=== PATIENT | female | born 2000 | race Caucasian/White ===

== ENCOUNTER 2019-08-16 22:19 | Emergency (ER) | payer OTHER, SELFPAY ==
--- NOTE | ~2019-08-16 | US_ITS ---
EXAMINATION: US OB <=14 wk fetus w TV EXAM DATE: 08/17/2019 00:50 INDICATION: Vaginal bleeding, . 1st trimester. Beta hCG 30. TECHNIQUE: Pelvic obstetrical transabdominal sonogram was performed by a technologist. There are mu ltiple grayscale and Doppler images available for interpretation. There are no earlier studies of th is gestation for comparison. FINDINGS: Uterus measures 9.0 x 5.9 x 4.0 cm, is anteverted and morphologically normal. There is no i ntrauterine or extrauterine identified. Endometrial stripe measures 6 mm, within normal wagner its. There is a nabothian cyst. There is small free pelvic fluid. Right adnexa: The ovary measures 1.7 x 1.8 x 1.7 cm and is morphologically normal. Ovarian vascular f low confirmed. Left adnexa: The ovary measures 2.5 x 1.8 x 1.5 cm and is morphologically normal. Ovarian vascular fl ow confirmed. Early intrauterine or recent spontaneous are common causes of elevated beta hCG in absence of intrauterine confirmation. Ultrasound can sometimes identify, but never exclud e an ectopic in the setting of positive beta hCG. Follow up as warranted clinically with s erial beta hCG levels or ultrasound. IMPRESSION: 1. No intrauterine or extrauterine identified. Reviewed, dictated and finalized at location A.
[2019-08-16 22:23] VITALS: BP 144/78; PULSE 97; RESP 18; TEMP 37.2; O2SAT 95
--- NOTE | 2019-08-16 22:42 | ED.GENADULT ---
HPI - General Adult General Chief complaint: Vaginal Bleeding Stated complaint: cramping, preg test Time Seen by Provider: 08/16/19 22:28 Source: RN notes reviewed History of Present Illness HPI narrative: Patient presents emergency department from home for positive test. Patient states over the past week she has been having some intermittent lower abdominal cramping intermittent vaginal bleeding described as spotting. She states currently she is not having any bleeding or abdominal pain. States she took a home test tonight that was positive. The patient has a history of 1 previous with delivery via . She denies any fevers or chills nausea vomiting diarrhea or any other symptoms. The patient is followed by Dr. Becerra Related Data Home Medications Medication Instructions Recorded Confirmed No Home Medications 08/16/19 08/16/19 Allergies Allergy/AdvReac Type Severity Reaction Status Date / Time No Known Allergies Allergy Verified 08/16/19 22:56 Review of Systems Review of Systems: Narrative: Gen.: Denies fevers or chills ENT: Denies congestion Respiratory: Denies shortness of breath or cough CV: Denies chest pain or palpitations GI: Reports abdominal pain, denies nausea, emesis or diarrhea reports vaginal bleeding Musculoskeletal: Denies back pain or muscle pain Neuro: Denies numbness, tingling, weakness or focal weakness Skin: Denies rash Except as documented, all other systems reviewed and negative [facility] Past Medical History Medical History (Updated 08/17/19 @ 01:16 by Piotr Ferguson DO) Patient denies significant medical history Social History Social History (Updated 08/16/19 @ 22:44 by Piotr Ferguson DO) Smoking status: Never smoker Exam Narrative: Exam Narrative: APPEARANCE: No acute distress, nontoxic, resting in bed EYES: EOMI HEENT: Normocephalic, atraumatic, OMM RESPIRATORY: No respiratory distress Clear to auscultation bilaterally with no rhonchi wheezing or rales. CARDIOVASCULAR: Regular rate and rhythm without murmurs rubs or gallops. ABDOMINAL: Soft, nontender, nondistended, no rebound or guarding MUSCULOSKELETAl: Moves all extremities. NEURO: Awake and alert. Following commands, speech normal, no focal deficits SKIN:: Warm, dry. No rashes lesions or abrasions PSYCHIATRIC: Normal affect/mood, Course Course Emergency Course: Discussed with Dr. Becerra presentation and work-up. Agrees with plan for discharge repeat beta-hCG in 48 hours and follow-up as an outpatient Discussed with patient results of workup and diagnosis. Discussed need for follow-up with primary care, proper use of medication, and reasons to return to the emergency department. Patient understands and agrees to current treatment plan Vital Signs Vital signs: Vital Signs Temperature 98.9 F 08/16/19 22:23 Pulse Rate 97 08/16/19 22:23 Respiratory Rate 18 08/16/19 22:23 Blood Pressure 144/78 H 08/16/19 22:23 Pulse Oximetry 95 08/16/19 22:23 Temperature 98.9 F 08/16/19 22:23 Pulse Rate 87 08/16/19 23:30 Respiratory Rate 16 08/16/19 23:30 Blood Pressure 129/75 08/16/19 23:30 Pulse Oximetry 97 08/16/19 23:30 Medical Decision Making Vital Signs Vital Signs: Vital Signs Temperature 98.9 F 08/16/19 22:23 Pulse Rate 97 08/16/19 22:23 Respiratory Rate 18 08/16/19 22:23 Blood Pressure 144/78 H 08/16/19 22:23 Pulse Oximetry 95 08/16/19 22:23 Temperature 98.9 F 08/16/19 22:23 Pulse Rate 87 08/16/19 23:30 Respiratory Rate 16 08/16/19 23:30 Blood Pressure 129/75 08/16/19 23:30 Pulse Oximetry 97 08/16/19 23:30 Lab Data Result diagrams: 08/16/19 23:01 08/16/19 23:01 Labs: Lab Results 08/16/19 08/16/19 08/16/19 Range/Units 23:01 23:01 23:03 WBC 6.7 (4.5-10.0) K/mm3 RBC 4.23 (4.2-5.4) M/mm3 Hgb 11.8 L (12.0-15.0) g/dL Hct 35.9 L (37.0-47.0) %
[2019-08-16 23:09] LABS: Basophils Percent Auto 0.5 % (0.2-1.2); Eosinophils Absolute Auto 0.1 K/mm3 (0-0.3); Eosinophils Percent Auto 1.1 % (0-4.4); Hematocrit 35.9 % (37.0-47.0); Hemoglobin 11.8 g/dL (12.0-15.0); Immature Granulocyte Absolute 0.02 K/mm3 (0.00-0.031); Immature Granulocyte Percent A 0.3 % (0-0.5); Lymphocytes Percent Auto 34.5 % (18.3-44.2); Mean Corpuscular HGB Conc 32.9 g/dl (32-36); Mean Corpuscular Hemoglobin 27.9 pg (26-34); Mean Corpuscular Volume 84.9 fl (80-100); Mean Platelet Volume 9.6 fl (7.4-10.4); Monocytes Absolute Auto 0.5 K/mm3 (0.1-0.6); Monocytes Percent Auto 7.2 % (2.6-8.5); Neutrophils Absolute Auto 3.8 K/mm3 (1.3-6.7); Neutrophils Percent Auto 56.4 % (45.5-73.1); Platelet Count Result 234 k/mm3 (150-375); Red Blood Count 4.23 M/mm3 (4.2-5.4); White Blood Count 6.7 K/mm3 (4.5-10.0)
[2019-08-16 23:17] LABS: Add Urine Microscopic? YES; Appearance Urine Clear (Clear); Bacteria Urine 2+ /hpf; Bilirubin Urine Negative (Negative); Blood Urine 2+ (Negative); Color Urine Straw (Yellow); Glucose Urine UA Negative (Negative); Ketones Urine Negative (Negative); Leukocyte Esterase Ur Negative LEU/UL (Negative); Nitrate Urine Negative (Negative); Protein Urine Negative (Negative); RBC Urine 0-2 /hpf (0-2); Specific Grav Ur 1.005 (1.001-1.035); Squamous Epithelial Cell Urine Many /hpf (Few); Urobilinogen Urine Negative mg/dL (<2.0); WBC Urine 0-3 /hpf
[2019-08-16 23:20] LABS: Alanine Aminotransferase 13 U/L (4-35); Albumin Level 4.4 g/dL (3.5-5.1); Alkaline Phosphatase 108 U/L (38-126); Aspartate Amino Transferase 23 U/L (14-36); Bilirubin,Total 0.4 mg/dL (0.2-1.3); Blood Urea Nitrogen 13 mg/dL (7-17); Carbon Dioxide 25 mmol/L (22-30); Chloride 105 mmol/L (98-107); Estimated CRCL calculation 124 ml/min; Estimated Glomerular Filt Rate > 60; Glucose 112 mg/dL (65-105); Potassium 3.5 mmol/L (3.4-5.0); Sodium 136 mmol/L (137-145)
[2019-08-16 23:30] VITALS: BP 129/75; PULSE 87; RESP 16; O2SAT 97
[2019-08-16 23:36] LABS: Beta HCG Quantitative 29.82 mIU/ML
[2019-08-17 01:41] VITALS: BP 130/78; PULSE 78; RESP 16; O2SAT 97
== END 2019-08-17 01:43 | disposition home or self-care (01) ==
PROVIDERS: Emergency Provider Emergency Medicine
DX: O20.0 Threatened abortion (principal); Z3A.01 Less than 8 weeks gestation of pregnancy
CPT/HCPCS: 36415; 76801; 76817; 80053; 81001; 81025; 84702; 85025; 85461; 99284

== ENCOUNTER 2019-09-03 09:00 | Emergency (ER) | payer OTHER, SELFPAY ==
[2019-09-03 09:05] VITALS: BP 118/74; PULSE 84; RESP 16; TEMP 36.3; O2SAT 100
--- NOTE | 2019-09-03 09:18 | ED.FEMALEGU ---
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 The pain is bilateral. worst with walking. Vaginal dyscharge is clear and minimal. She was seen here about 2 1/2 weeks ago and told that she was having an early miscarriage. She has some light vaginal bleeding and cramping. She was then diagnosed with a UTI a few days later. She recently completed treatment and had been feeling better until yesterday. Related Data Allergies Allergy/AdvReac Type Severity Reaction Status Date / Time No Known Allergies Allergy Verified 09/03/19 09:52 Review of Systems Review of Systems: All systems reviewed & are unremarkable except as noted in HPI and below PMFSH Past Medical History Medical History Patient denies significant medical history Social History Social History Smoking status: Never smoker Exam Const: General: healthy appearing, no acute distress and alert Orientation/consciousness: patient oriented x3 HENMT: Head: normal to inspection Neck: Neck: normal visual inspection and no lymphadenopathy Chest: Chest palpation & inspection: no tenderness Resp: Effort & Inspection: normal respiratory effort Auscultation: clear to auscultation bilaterally, no rales, no rhonchi and no wheezes Cardio: Jugular venous distension: no JVD Rate: regular rate Rhythm: regular rhythm Heart sounds: no murmurs GI: Inspection: non-distended GI Palp: Yes Soft to palpation and No Tenderness to palpation present (GI) : External Female Exam: normal external appearance Speculum Exam - Vagina: normal appearance of the vagina and normal vaginal discharge Speculum Exam - Cervix: normal appearance of the cervix Skin: General skin exam: normal color Neuro: General: patient oriented x3 and moves all extremities Speech: normal speech Extrem: General: no edema Psych: Appearance: well kempt Affect: normal affect Course Vital Signs Vital signs: Vital Signs Temperature 36.3 C L 09/03/19 09:05 Pulse Rate 84 09/03/19 09:05 Respiratory Rate 16 09/03/19 09:05 Blood Pressure 118/74 09/03/19 09:05 Pulse Oximetry 100 09/03/19 09:05 Temperature 36.6 C 09/03/19 11:40 Pulse Rate 75 09/03/19 11:40 Respiratory Rate 16 09/03/19 11:40 Blood Pressure 127/72 09/03/19 11:40 Pulse Oximetry 99 09/03/19 11:40 MDM - Female Genitourinary MDM Narrative Medical decision making narrative: exam was essentially normal. She did have minimal clear discharge. Exam is not tyical for a yeasty infection, but symptoms did start after course of antibiotics, so she is at risk. I will send labs for STD and give 1 time dose of diflucan. Medical Records Attestation: I reviewed the patient's medical records. Lab Data Attestation: I reviewed the patient's lab results. Labs: Lab Results 09/03/19 09/03/19 09/03/19 Range/Units 09:14 11:21 11:21 Urine Color Yellow (Yellow) Urine Appearance Clear (Clear) Urine pH 6.0 (5.0-9.0) Ur Specific [place] 1.025 (1.001-1.035) Urine Protein Negative (Negative) mg/dL Urine Glucose (UA) Negative (Negative) mg/dL Urine Ketones Negative (Negative) mg/dL Ur Blood (Man) 1+ H (Negative) Urine Nitrate Negative (Negative) Urine Bilirubin Negative (Negative) Urine Urobilinogen 1.0 (<2.0) mg/dL Leukocyte Esterase Rfl Negative (Negative) AB/UL Urine RBC 0-2 (0-2) /hpf Urine WBC 0-3 /hpf Ur Squamous Epith Cells Moderate H (Few) /hpf Urine Bacteria Trace /hpf C.trachomatis RNA (TMA) Pending N.gonorrhoeae RNA (TMA) Pending Trichomonas Direct ID Negative (Negative) Discharge Plan Discharge Clinical
[2019-09-03 09:39] LABS: Appearance Urine Clear (Clear); Bilirubin Urine Negative (Negative); Blood Urine 1+ (Negative); Color Urine Yellow (Yellow); Glucose Urine UA Negative (Negative); Ketones Urine Negative (Negative); Leukocyte Esterase Ur Negative LEU/UL (Negative); Nitrate Urine Negative (Negative); Protein Urine Negative (Negative); Specific Grav Ur 1.025 (1.001-1.035)
[2019-09-03 09:54] LABS: Add Urine Microscopic? YES; RBC Urine 0-2 /hpf (0-2); Squamous Epithelial Cell Urine Moderate /hpf (Few); WBC Urine 0-3 /hpf
[2019-09-03 09:55] LABS: Bacteria Urine Trace /hpf
[2019-09-03] MEDS: FLUCONAZOLE 150 MG TABLET PO (11:37)
[2019-09-03 11:40] VITALS: BP 127/72; PULSE 75; RESP 16; TEMP 36.6; O2SAT 99
== END 2019-09-03 11:41 | disposition home or self-care (01) ==
PROVIDERS: Emergency Provider Emergency Medicine
DX: R10.2 Pelvic and perineal pain (principal)
CPT/HCPCS: 81001; 87070; 87491; 87591; 87808; 99284; A9270

== ENCOUNTER 2020-01-15 16:49 | Emergency (ER) | payer OTHER, SELFPAY ==
--- NOTE | ~2020-01-15 | US_ITS ---
EXAMINATION: US OB <=14 wk fetus w TV DATE: 01/15/2020 17:55 INDICATION: Pelvic pain TECHNIQUE: Real-time pelvic ultrasound utilizing both a transvaginal and transabdominal probe was pe rformed. The interpreting radiologist was not present for the study. COMPARISON: None. FINDINGS: The uterus measures 8.0 x 6.3 x 4.7 cm. There is an intrauterine gestational sac with double decidua sign but with no evident yolk sac or pole yet identified likely due to early stage of pregnanc y. The mean sac diameter measures 2-3 mm, which correlates with an estimated gestational age of 4 wee ks and 6 days. Suggestion of a prior section scar along the anterior lower uterine segment. The right ovary measures 3.3 x 2.9 x 2.9 cm. There are couple anechoic cysts in the right ovary, the larger measuring 2.6 cm with thick wall likely corpus luteum cyst. Vascular flow identified in right ovary on color Doppler. The left ovary is not visualized. There is no free fluid in the pelvis. IMPRESSION: 1. Single intrauterine gestational sac with double decidua sign but no discernible yolk sac or pole likely due to early stage of . 2. Gestational age by ultrasound of 4 weeks 6 day(s) with ultrasound estimated date of delivery (TESSA ) of 09/17/2020. Reviewed, dictated and finalized at [facility]. 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 Single intrauterine gestational sac with double decidua sign but no discerni ble yolk sac or pole likely due to early stage of . 2. Gestational age by ultrasound of 4 weeks 6 day(s) with ultrasound estimated date of delivery (TESSA) of 09/17/2020.
[2020-01-15 16:54] VITALS: BP 139/80; PULSE 88; RESP 18; TEMP 36; O2SAT 96
[2020-01-15 17:31] LABS: Basophils Percent Auto 0.4 % (0.2-1.2); Eosinophils Absolute Auto 0.1 K/mm3 (0-0.3); Eosinophils Percent Auto 0.6 % (0-4.4); Hemoglobin 12.5 g/dL (12.0-15.0); Immature Granulocyte Absolute 0.02 K/mm3 (0.00-0.031); Immature Granulocyte Percent A 0.3 % (0-0.5); Lymphocytes Absolute Auto 2.05 K/mm3 (0.9-3.2); Lymphocytes Percent Auto 25.7 % (18.3-44.2); Mean Corpuscular HGB Conc 33.8 g/dl (32-36); Mean Corpuscular Hemoglobin 28.3 pg (26-34); Mean Corpuscular Volume 83.7 fl (80-100); Mean Platelet Volume 9.3 fl (7.4-10.4); Monocytes Absolute Auto 0.4 K/mm3 (0.1-0.6); Neutrophils Absolute Auto 5.4 K/mm3 (1.3-6.7); Platelet Count Result 228 k/mm3 (150-375); Red Blood Count 4.42 M/mm3 (4.2-5.4); Red Cell Distribution Width 12.7 % (11.5-14.5)
--- NOTE | 2020-01-15 17:56 | ED.GENADULT ---
HPI - General Adult General Chief complaint: Unspecified Stated complaint: pelvic pain & cramping - 5 wks preg Time Seen by Provider: 01/15/20 16:57 Source: patient Mode of arrival: ambulatory Limitations: no limitations History of Present Illness HPI narrative: This patient is a 19 year old female approximately 5 wk by LMP who presents for evaluation of lower pelvic pain for the past few hours. She states the pain has resolved now but she is concerned because she had a miscarriage in July. She denies vaginal bleeding, lightheadedness or dizziness. She reports abdominal pain when she urinates so she would like to be checked for a UTI. Related Data Home Medications Medication Instructions Recorded Confirmed No Home Medications 01/15/20 01/15/20 Allergies Allergy/AdvReac Type Severity Reaction Status Date / Time No Known Allergies Allergy Verified 01/15/20 16:53 Review of Systems Review of Systems: Narrative: CONSTITUTIONAL: Denies fever, chills, or sweats. ENT: Denies rhinorrhea, congestion, sore throat, or otalgia. RESPIRATORY: Denies cough or dyspnea. . GENITOURINARY: Denies dysuria or hematuria. SKIN: Denies rash or itching. MUSCULOSKELETAL: Denies back pain, joint pain, or myalgia. NEUROLOGIC: Denies headache, numbness, or weakness. PSYCHIATRIC: Denies anxiety or depression. All systems reviewed & are unremarkable except as noted in HPI and below PMFSH Past Medical History Medical History (Updated 01/16/20 @ 00:00 by Beata Dakaren) Patient denies significant medical history Surgical History Surgical History (Updated 01/15/20 @ 17:58 by Gabriella Oliveros MD) H/O section Social History Social History Smoking status: Never smoker Gender identity (if verbalized by the patient): Female Exam Narrative: Exam Narrative: GENERAL: Well-appearing, well-nourished, and in no acute distress. HEAD: Normocephalic, atraumatic EYES: PERRLA and EOMI, conjunctiva clear without discharge E RESPIRATORY: No respiratory distress, Airway patent, Respirations non-labored, Clear to auscultation without rales, rhonchi or wheeze HEART: Regular rate and rhythm. No murmur heard. Normal peripheral pulses. ABDOMEN: Soft, nontender, nondistended, normal active bowel sounds. No masses. No rebound or guarding, No organomegaly. EXTREMITIES: No edema, normal strength with full range of motion. SKIN: Warm, dry, normal color without rash NEURO: Alert and oriented x3. CN 2-12 grossly intact. No focal deficits. PSYCH: Normal mood and affect. : Speculum Exam - Vagina: abnormal vaginal discharge white Speculum Exam - Cervix: normal palpation and Cervical os closed Course Reevaluation(s) Reevaluation #1: Patient is aware of ultrasound only showing sac and it may be too early. She reports her HCG has double over the past 48 hours and she understands she will have to follow up with OB to determine viability. Date: 01/15/20 Time: 19:31 Vital Signs Vital signs: Vital Signs Temperature 96.8 F L 01/15/20 16:54 Pulse Rate 88 01/15/20 16:54 Respiratory Rate 18 01/15/20 16:54 Blood Pressure 139/80 01/15/20 16:54 Pulse Oximetry 96 01/15/20 16:54 Temperature 96.8 F L 01/15/20 16:54 Pulse Rate 103 H 01/15/20 19:27 Respiratory Rate 18 01/15/20 16:54 Blood Pressure 112/63 01/15/20 19:27 Pulse Oximetry 96 01/15/20 16:54 Medical Decision Making Vital Signs Vital Signs: Vital Signs Temperature 96.8 F L 01/15/20 16:54 Pulse Rate 88 01/15/20 16:54 Respiratory Rate 18 01/15/20 16:54 Blood Pressure 139/80 01/15/20 16:54 Pulse Oximetry 96 01/15/20 16:54 Temperature 96.8 F L 01/15/20 16:54 Pulse Rate 103 H 01/15/20 19:27 Respiratory Rate 18 01/15/20 16:54 Blood Pressure 112/63 01/15/20 19:27 Pulse Oximetry 96 01/15/20 16:54 Lab Data Result diagrams: 01/15/20 17:21
[2020-01-15 18:09] LABS: Add Urine Microscopic? YES; Appearance Urine Clear (Clear); Bacteria Urine Trace /hpf; Bilirubin Urine Negative (Negative); Blood Urine Negative (Negative); Color Urine Yellow (Yellow); Glucose Urine UA Negative (Negative); Ketones Urine Negative (Negative); Leukocyte Esterase Ur Negative LEU/UL (Negative); Mucus Urine Rare /lpf; Nitrate Urine Negative (Negative); Protein Urine Negative (Negative); Specific Grav Ur 1.026 (1.001-1.035); Squamous Epithelial Cell Urine Many /hpf (Few); WBC Urine 0-3 /hpf
[2020-01-15 19:25] VITALS: BP 130/71; PULSE 74
[2020-01-15 19:26] VITALS: BP 112/67; PULSE 93
[2020-01-15 19:27] VITALS: BP 112/63; PULSE 103
== END 2020-01-15 19:54 | disposition home or self-care (01) ==
PROVIDERS: Emergency Provider General Practice
DX: O26.891 Other specified pregnancy related conditions, first trimester (principal); R10.2 Pelvic and perineal pain; Z3A.01 Less than 8 weeks gestation of pregnancy
CPT/HCPCS: 36415; 76801; 76817; 81001; 81025; 84702; 85025; 87070; 87491; 87591; 87808; 99284

== ENCOUNTER 2020-03-20 21:08 | Emergency (ER) | payer OTHER, SELFPAY ==
[2020-03-20 21:11] VITALS: BP 124/71; PULSE 100; RESP 18; TEMP 36.4; O2SAT 100
--- NOTE | 2020-03-20 21:53 | ED.FEMALEGU ---
HPI - Female Genitourinary General Chief complaint: Urogenital-Female Stated complaint: 14 wks , ongoing uti symptoms Time Seen by Provider: 03/20/20 21:13 Source: patient Mode of arrival: ambulatory Limitations: no limitations History of Present Illness HPI Narrative: A 19-year-old female comes into the emergency department with complaints of dysuria burning and stinging. She states that it feels like there is an ice pick in her urethra. Patient notes she is currently 14 weeks has been treated for an ongoing UTI. She notes that she has seen her primary care doctor who initially prescribed her Macrobid and then cephalexin. She states that she is still currently taking cephalexin for her second go around. Patient denies any vaginal discharge at this time. Related Data Home Medications Medication Instructions Recorded Confirmed cephalexin 03/20/20 [id number] tablet PO 03/20/20 [] Allergies Allergy/AdvReac Type Severity Reaction Status Date / Time No Known Allergies Allergy Verified 03/20/20 21:18 Review of Systems Review of Systems: Narrative: CONSTITUTIONAL: Denies fever, chills, or sweats. EYES: Denies visual changes, redness, or discharge. ENT: Denies rhinorrhea, congestion, sore throat, or otalgia. CARDIOVASCULAR: Denies chest pain, palpitations, or edema. RESPIRATORY: Denies cough or dyspnea. GASTROINTESTINAL: Denies abdominal pain, nausea, vomiting, or diarrhea. GENITOURINARY: Endorses dysuria. SKIN: Denies rash or itching. MUSCULOSKELETAL: Denies back pain, joint pain, or myalgia. NEUROLOGIC: Denies headache, numbness, dizziness, or weakness. PSYCHIATRIC: Denies anxiety or depression. PMFSH Past Medical History Medical History Patient denies significant medical history Surgical History Surgical History H/O section Social History Social History Smoking status: Never smoker Gender identity (if verbalized by the patient): Female Exam Narrative: Exam Narrative: GENERAL: Well-appearing, well-nourished, and in no acute distress. HEAD: Normocephalic, atraumatic. EYES: PERRLA and EOMI. ENT: Nares clear, no rhinorrhea or epistaxis. Mucous membranes moist. Oropharynx without tonsillar hypertrophy exudate or other lesions. Bilateral TMs pearly hernandez nonbulging NECK: Supple. No adenopathy or masses. No carotid bruits or JVD CHEST: Clear to auscultation. No respiratory distress. No wheezes rales or rhonchi HEART: Regular rate and rhythm. No murmur heard. Normal peripheral pulses. ABDOMEN: Soft, nontender, nondistended, normal active bowel sounds. EXTREMITIES: Normal range of motion. No edema. SKIN: Warm, dry, no rash. NEURO: No focal deficits. Alert and oriented x3. PSYCH: Normal mood and affect. Course Vital Signs Vital signs: Vital Signs Temperature 36.4 C 03/20/20 21:11 Pulse Rate 100 03/20/20 21:11 Respiratory Rate 18 03/20/20 21:11 Blood Pressure 124/71 03/20/20 21:11 Pulse Oximetry 100 03/20/20 21:11 Temperature 36.4 C 03/20/20 21:11 Pulse Rate 100 03/20/20 21:11 Respiratory Rate 18 03/20/20 21:11 Blood Pressure 124/71 03/20/20 21:11 Pulse Oximetry 100 03/20/20 21:11 MDM - Female Genitourinary MDM Narrative Medical decision making narrative: In brief this 19-year-old female came into the emergency department complaints of dysuria and an ongoing UTI. Patient was able to give a urine sample. There was no evidence of WBCs bacteria leukocyte esterase or nitrites on her urine. Informed the patient that at this time I do not see anything to treat, recommended she continue her treatment as laid out by her primary care physician and follow-up with either her vocational rehabilitation counselor or a urologist which we can provide. Medical Records Attestation: I revie
[2020-03-20 22:23] LABS: Add Urine Microscopic? YES; Appearance Urine Clear (Clear); Bacteria Urine Trace /hpf; Bilirubin Urine Negative (Negative); Blood Urine Negative (Negative); Color Urine Straw (Yellow); Glucose Urine UA Negative (Negative); Ketones Urine Negative (Negative); Leukocyte Esterase Ur Negative LEU/UL (Negative); Mucus Urine Rare /lpf; Nitrate Urine Negative (Negative); Protein Urine Negative (Negative); RBC Urine 0-2 /hpf (0-2); Squamous Epithelial Cell Urine Moderate /hpf (Few); WBC Urine 0-3 /hpf
[2020-03-20 23:26] VITALS: BP 133/87; PULSE 93; RESP 18; O2SAT 99
== END 2020-03-20 23:28 | disposition home or self-care (01) ==
PROVIDERS: Emergency Provider Emergency Medicine
DX: O23.12 Infections of bladder in pregnancy, second trimester (principal); Z3A.14 14 weeks gestation of pregnancy
CPT/HCPCS: 81001; 99283

== ENCOUNTER 2020-06-22 16:38 | Observation (INO) | payer OTHER, SELFPAY ==
[2020-06-22 17:00] VITALS: BMI 36.1
[2020-06-22 17:01] VITALS: BP 126/80; PULSE 100
--- NOTE | 2020-06-22 17:12 | OBADM ---
This patient, Chloé Barrios, admitted to the OB room OB Post 115 for observation. Patient/family oriented to hospital policies and general routines including ID bracelet, bed and alarms, visiting hours, pain management, procedures, bathroom and other care routines, personal items, smoking policy, room service/diet, and visiting hours. Patient/Family are encouraged to report perceived risks to care and to ask questions if they do not understand what they are told or what they should do.
[2020-06-22 17:16] VITALS: BP 112/63; PULSE 90
[2020-06-22 17:31] VITALS: BP 113/66; PULSE 96
[2020-06-22 17:37] VITALS: TEMP 36.6
[2020-06-22 17:46] VITALS: BP 107/72; PULSE 96
[2020-06-22 17:50] LABS: Add Urine Microscopic? YES; Appearance Urine Cloudy (Clear); Bacteria Urine Trace /hpf; Bilirubin Urine Negative (Negative); Blood Urine Negative (Negative); Color Urine Yellow (Yellow); Glucose Urine UA Negative (Negative); Ketones Urine Negative (Negative); Leukocyte Esterase Ur Negative LEU/UL (Negative); Nitrate Urine Negative (Negative); Protein Urine Negative (Negative); RBC Urine 0-2 /hpf (0-2); Specific Grav Ur 1.008 (1.001-1.035); Squamous Epithelial Cell Urine Few /hpf (Few); Urobilinogen Urine Negative mg/dL (<2.0); WBC Urine 0-3 /hpf
[2020-06-22 18:01] VITALS: BP 112/71; PULSE 95
--- NOTE | 2020-06-26 13:51 | P.PNOB_ITS ---
OB - Triage/Final Diagnosis Visit Information Comments/Additional reasons for admission: I have assessed the risk for this patient, Chloé Barrios, and determined that she would benefit from observation care. Evaluation Laboratory results: Laboratory Tests 06/22/20 17:37 Urine Color Yellow Urine Appearance Cloudy H Urine pH 7.0 Ur Specific [place] 1.008 Urine Protein Negative Urine Glucose (UA) Negative Urine Ketones Negative Ur Blood (Man) Negative Urine Nitrate Negative Urine Bilirubin Negative Urine Urobilinogen Negative Leukocyte Esterase Rfl Negative Urine RBC 0-2 Urine WBC 0-3 Ur Squamous Epith Cells Few Urine Bacteria Trace Final Diagnosis (1) Lumbago: Code(s): M54.5 - Low back pain Status: Acute
== END 2020-06-22 18:18 | disposition home or self-care (01) ==
PROVIDERS: Admitting Provider Obstetrics & Gynecology; Visit Provider Obstetrics & Gynecology
DX: O99.892 Other specified diseases and conditions complicating childbirth (principal); M54.5 Low back pain; Z3A.27 27 weeks gestation of pregnancy
CPT/HCPCS: 81001; G0378; G0379

== ENCOUNTER 2020-07-06 10:47 | Outpatient (CLI) | payer OTHER, SELFPAY ==
[2020-07-06 11:31] VITALS: BP 134/77; PULSE 102
[2020-07-06 11:41] LABS: Basophils Percent Auto 0.1 % (0.2-1.2); Eosinophils Percent Auto 0.4 % (0-4.4); Hematocrit 30.5 % (37.0-47.0); Hemoglobin 10.3 g/dL (12.0-15.0); Immature Granulocyte Absolute 0.03 K/mm3 (0.00-0.031); Immature Granulocyte Percent A 0.4 % (0-0.5); Lymphocytes Absolute Auto 1.22 K/mm3 (0.9-3.2); Mean Corpuscular HGB Conc 33.8 g/dl (32-36); Mean Corpuscular Hemoglobin 29.2 pg (26-34); Mean Corpuscular Volume 86.4 fl (80-100); Mean Platelet Volume 9.1 fl (7.4-10.4); Monocytes Absolute Auto 0.5 K/mm3 (0.1-0.6); Neutrophils Absolute Auto 5.4 K/mm3 (1.3-6.7); Neutrophils Percent Auto 75.1 % (45.5-73.1); Platelet Count Result 173 k/mm3 (150-375); Red Blood Count 3.53 M/mm3 (4.2-5.4); Red Cell Distribution Width 14.3 % (11.5-14.5); White Blood Count 7.2 K/mm3 (4.5-10.0)
[2020-07-06 11:46] VITALS: BP 131/77; PULSE 98
[2020-07-06 11:48] LABS: Add Urine Microscopic? YES; Appearance Urine Cloudy (Clear); Bacteria Urine Trace /hpf; Bilirubin Urine Negative (Negative); Blood Urine Negative (Negative); Color Urine Yellow (Yellow); Glucose Urine UA Negative (Negative); Ketones Urine Negative (Negative); Leukocyte Esterase Ur Negative LEU/UL (NEGATIVE); Mucus Urine Rare /lpf; Nitrate Urine Negative (Negative); Protein Urine Negative (Negative); Specific Grav Ur 1.013 (1.001-1.035); Squamous Epithelial Cell Urine Occasional /hpf (Few); Urobilinogen Urine Negative mg/dL (<2.0); WBC Urine 0-3 /hpf (0-3)
[2020-07-06 11:50] LABS: Alanine Aminotransferase 10 U/L (4-35); Albumin Level 3.4 g/dL (3.5-5.1); Alkaline Phosphatase 91 U/L (38-126); Anion Gap 5 mmol/L (8-16); Aspartate Amino Transferase 19 U/L (14-36); Bilirubin,Total 0.2 mg/dL (0.2-1.3); Blood Urea Nitrogen 8 mg/dL (7-17); Calcium 9.2 mg/dL (8.4-10.2); Carbon Dioxide 23 mmol/L (22-30); Chloride 107 mmol/L (98-107); Estimated Glomerular Filt Rate > 60; Glucose 110 mg/dL (65-105); Potassium 3.6 mmol/L (3.4-5.0); Sodium 135 mmol/L (137-145); Uric Acid 2.7 mg/dL (2.5-7.5)
[2020-07-06 11:55] LABS: Creatinine Urine 59.7 mg/dL; Total Protein Urine Random 15 mg/dL; Ur Ttl Prot Creatinine Ratio 0.25 mg/mg (0-0.20)
[2020-07-06 12:01] VITALS: BP 132/80; PULSE 103
[2020-07-06 12:16] VITALS: BP 124/74; PULSE 97
[2020-07-06 12:31] VITALS: BP 122/80; PULSE 107
--- NOTE | 2020-07-06 12:37 | PC.NURSE ---
Called Dr. Becerra with lab results and BPs. Reactive NST and no contractions seen or felt. Pt states that she has a headache that she rates a 4 and states that it isn't too bad. May D/C home.
== END 2020-07-06 12:40 | disposition home or self-care (01) ==
LOC: ANHOBOP 10:52 → ANHOBPP 10:52
PROVIDERS: Visit Provider Obstetrics & Gynecology
DX: O13.3 Gestational [pregnancy-induced] hypertension without significant proteinuria, third trimester (principal); Z3A.30 30 weeks gestation of pregnancy
CPT/HCPCS: 36415; 59025; 80053; 81001; 82570; 84156; 84550; 85025; 87086; 87088; 99199

== ENCOUNTER 2020-08-05 20:45 | Observation (INO) | payer OTHER, SELFPAY ==
[2020-08-05 21:08] VITALS: BP 138/91; PULSE 113
[2020-08-05 21:17] VITALS: BP 140/83; PULSE 110
[2020-08-05 21:20] VITALS: BMI 38.1
[2020-08-05 21:24] LABS: Basophils Percent Auto 0.2 % (0.2-1.2); Eosinophils Percent Auto 0.4 % (0-4.4); Hematocrit 30.2 % (37.0-47.0); Immature Granulocyte Absolute 0.04 K/mm3 (0.00-0.031); Immature Granulocyte Percent A 0.5 % (0-0.5); Lymphocytes Absolute Auto 1.77 K/mm3 (0.9-3.2); Lymphocytes Percent Auto 20.9 % (18.3-44.2); Mean Corpuscular HGB Conc 33.1 g/dl (32-36); Mean Corpuscular Hemoglobin 28.6 pg (26-34); Mean Corpuscular Volume 86.3 fl (80-100); Mean Platelet Volume 9.4 fl (7.4-10.4); Monocytes Absolute Auto 0.7 K/mm3 (0.1-0.6); Monocytes Percent Auto 8.5 % (2.6-8.5); Neutrophils Absolute Auto 5.9 K/mm3 (1.3-6.7); Neutrophils Percent Auto 69.5 % (45.5-73.1); Platelet Count Result 181 k/mm3 (150-375); Red Cell Distribution Width 14.4 % (11.5-14.5); White Blood Count 8.5 K/mm3 (4.5-10.0)
[2020-08-05 21:29] LABS: Add Urine Microscopic? YES; Appearance Urine Cloudy (Clear); Bacteria Urine 2+ /hpf; Bilirubin Urine Negative (Negative); Blood Urine Negative (Negative); Color Urine Yellow (Yellow); Glucose Urine UA Negative (Negative); Ketones Urine Negative (Negative); Leukocyte Esterase Ur Trace LEU/UL (NEGATIVE); Mucus Urine Rare /lpf; Nitrate Urine Negative (Negative); Protein Urine 1+ mg/dL (Negative); RBC Urine 0-2 /hpf (0-2); Specific Grav Ur 1.014 (1.001-1.035); Squamous Epithelial Cell Urine Many /hpf (Few); WBC Urine 0-3 /hpf (0-3)
[2020-08-05 21:31] VITALS: BP 125/76; PULSE 108
[2020-08-05 21:35] LABS: Alanine Aminotransferase 12 U/L (4-35); Albumin Level 3.4 g/dL (3.5-5.1); Alkaline Phosphatase 108 U/L (38-126); Anion Gap 8 mmol/L (8-16); Aspartate Amino Transferase 20 U/L (14-36); Bilirubin,Total 0.2 mg/dL (0.2-1.3); Blood Urea Nitrogen 6 mg/dL (7-17); Calcium 8.6 mg/dL (8.4-10.2); Carbon Dioxide 21 mmol/L (22-30); Chloride 107 mmol/L (98-107); Estimated CRCL calculation 190 ml/min; Estimated Glomerular Filt Rate > 60; Glucose 110 mg/dL (65-105); Potassium 3.6 mmol/L (3.4-5.0); Sodium 136 mmol/L (137-145); Uric Acid 2.6 mg/dL (2.5-7.5)
[2020-08-05 21:46] VITALS: BP 127/78; PULSE 107
[2020-08-05 21:48] LABS: Creatinine Urine 99.9 mg/dL; Total Protein Urine Random 25 mg/dL; Ur Ttl Prot Creatinine Ratio 0.25 mg/mg (0-0.20)
[2020-08-05 22:01] VITALS: BP 123/82; PULSE 105
[2020-08-05 22:16] VITALS: BP 116/76; PULSE 98
--- NOTE | 2020-08-07 07:18 | PM.OBTRLD ---
OB - Triage/Final Diagnosis Visit Information Comments/Additional reasons for admission: I have assessed the risk for this patient, Chloé Barrios, and determined that she would benefit from observation care. Evaluation Laboratory results: Laboratory Tests 08/05/20 08/05/20 08/05/20 21:11 21:11 21:11 WBC 8.5 RBC 3.50 L Hgb 10.0 L Hct 30.2 L MCV 86.3 MCH 28.6 MCHC 33.1 RDW 14.4 Plt Count 181 MPV 9.4 Immature Gran % (Auto) 0.5 Neut % (Auto) 69.5 Lymph % (Auto) 20.9 Nicholas % (Auto) 8.5 Eos % (Auto) 0.4 Baso % (Auto) 0.2 Lymph # (Auto) 1.77 Nicholas # (Auto) 0.7 H Eos # (Auto) 0.0 Baso # (Auto) 0.0 Abs Immat Gran (auto) 0.04 H Absolute Neuts (auto) 5.9 Absolute Nucleated RBC 0.0 Nucleated RBC % 0.0 Sodium Potassium Chloride Carbon Dioxide Anion Gap BUN Creatinine Estim Creat Clear Calc Estimated GFR Glucose Uric Acid Calcium Total Bilirubin AST ALT Alkaline Phosphatase Total Protein Albumin Urine Color Yellow Urine Appearance Cloudy H Urine pH 6.0 Ur Specific [place] 1.014 Urine Protein 1+ H Urine Glucose (UA) Negative Urine Ketones Negative Ur Blood (Man) Negative Urine Nitrate Negative Urine Bilirubin Negative Urine Urobilinogen 2.0 H Ur Leukocyte Esterase Trace H Urine RBC 0-2 Urine WBC 0-3 Ur Squamous Epith Cells Many H Urine Bacteria 2+ H Urine Mucus Rare U Random Total Protein 25 Urine Creatinine 99.9 Protein/Creat Ratio 2 0.25 H 08/05/20 21:11 WBC RBC Hgb Hct MCV MCH MCHC RDW Plt Count MPV Immature Gran % (Auto) Neut % (Auto) Lymph % (Auto) Nicholas % (Auto) Eos % (Auto) Baso % (Auto) Lymph # (Auto) Nicholas # (Auto) Eos # (Auto) Baso # (Auto) Abs Immat Gran (auto) Absolute Neuts (auto) Absolute Nucleated RBC Nucleated RBC % Sodium 136 L Potassium 3.6 Chloride 107 Carbon Dioxide 21 L Anion Gap 8 BUN 6 L Creatinine 0.50 L Estim Creat Clear Calc 190 Estimated GFR > 60 Glucose 110 H Uric Acid 2.6 Calcium 8.6 Total Bilirubin 0.2 AST 20 ALT 12 Alkaline Phosphatase 108 Total Protein 7.0 Albumin 3.4 L Urine Color Urine Appearance Urine pH Ur Specific [place] Urine Protein Urine Glucose (UA) Urine Ketones Ur Blood (Man) Urine Nitrate Urine Bilirubin Urine Urobilinogen Ur Leukocyte Esterase Urine RBC Urine WBC Ur Squamous Epith Cells Urine Bacteria Urine Mucus U Random Total Protein Urine Creatinine Protein/Creat Ratio 2 Final Diagnosis (1) Elevated blood pressure affecting , antepartum: Code(s): O16.9 - Unspecified maternal hypertension, unspecified trimester Status: Acute
== END 2020-08-05 22:50 | disposition home or self-care (01) ==
PROVIDERS: Admitting Provider Obstetrics & Gynecology; Visit Provider Obstetrics & Gynecology
DX: O13.3 Gestational [pregnancy-induced] hypertension without significant proteinuria, third trimester (principal); Z3A.33 33 weeks gestation of pregnancy
CPT/HCPCS: 36415; 59025; 80053; 81001; 82570; 84156; 84550; 85025; 87086; 87088; G0378; G0379

== ENCOUNTER 2020-09-08 05:09 | Inpatient (IN) | payer OTHER, SELFPAY ==
[2020-09-08] VITALS (60 sets, daily range): BP systolic 97–159; BP diastolic 33–140; PULSE 65–113; RESP 14–18; TEMP 36.3–37.1; O2SAT 92–100; BMI 38.9
[2020-09-08 05:49] LABS: Basophils Percent Auto 0.3 % (0.2-1.2); Eosinophils Percent Auto 0.5 % (0-4.4); Hematocrit 29.2 % (37.0-47.0); Hemoglobin 9.5 g/dL (12.0-15.0); Immature Granulocyte Absolute 0.04 K/mm3 (0.00-0.031); Immature Granulocyte Percent A 0.5 % (0-0.5); Lymphocytes Absolute Auto 1.54 K/mm3 (0.9-3.2); Lymphocytes Percent Auto 20.1 % (18.3-44.2); Mean Corpuscular HGB Conc 32.5 g/dl (32-36); Mean Corpuscular Hemoglobin 26.5 pg (26-34); Mean Corpuscular Volume 81.3 fl (80-100); Mean Platelet Volume 9.3 fl (7.4-10.4); Monocytes Absolute Auto 0.6 K/mm3 (0.1-0.6); Monocytes Percent Auto 8.2 % (2.6-8.5); Neutrophils Absolute Auto 5.4 K/mm3 (1.3-6.7); Neutrophils Percent Auto 70.4 % (45.5-73.1); Platelet Count Result 164 k/mm3 (150-375); Red Blood Count 3.59 M/mm3 (4.2-5.4); Red Cell Distribution Width 14.9 % (11.5-14.5); White Blood Count 7.7 K/mm3 (4.5-10.0)
[2020-09-08] MEDS: LACTATED RINGERS 1,000 ML 125 ML IV CONT (05:53)
--- NOTE | 2020-09-08 06:38 | WPDANESEPPF ---
Anes - Initial Pre Proc Eval Procedure: Operation Date: 09/08/20 07:30 Proposed Procedures p Repeat Section - Mykel Bceerra MD Date/Time: 09/08/20 06:38 Surgeon: Mykel Becerra MD Pre Op Diagnosis: Repeat Patient Data Age: 19 Gender: F Height: Weight: Last Vital Signs Pulse 113 H 09/08/20 06:00 BP 128/70 09/08/20 06:00 Allergies Allergy/AdvReac Type Severity Reaction Status Date / Time No Known Allergies Allergy Verified 03/20/20 21:18 Home Medications Medication Instructions Recorded Confirmed Type PNV cmb#95-ferrous fumarate-FA 1 tablet PO DAILY 08/19/20 08/19/20 History [] cephalexin 50 mg PO DAILY 08/19/20 08/19/20 History Laboratory Tests 09/08/20 09/08/20 05:37 05:37 WBC 7.7 K/mm3 K/mm3 (4.5-10.0) RBC 3.59 M/mm3 L M/mm3 (4.2-5.4) Hgb 9.5 g/dL L g/dL (12.0-15.0) Hct 29.2 % L % (37.0-47.0) MCV 81.3 fl fl (80-100) MCH 26.5 pg pg (26-34) MCHC 32.5 g/dl g/dl (32-36) RDW 14.9 % H % (11.5-14.5) Plt Count 164 k/mm3 k/mm3 (150-375) MPV 9.3 fl fl (7.4-10.4) Immature Gran % (Auto) 0.5 % % (0-0.5) Neut % (Auto) 70.4 % % (45.5-73.1) Lymph % (Auto) 20.1 % % (18.3-44.2) [place] % (Auto) 8.2 % % (2.6-8.5) Eos % (Auto) 0.5 % % (0-4.4) Baso % (Auto) 0.3 % % (0.2-1.2) Lymph # (Auto) 1.54 K/mm3 K/mm3 (0.9-3.2) [place] # (Auto) 0.6 K/mm3 K/mm3 (0.1-0.6) Eos # (Auto) 0.0 K/mm3 K/mm3 (0-0.3) Baso # (Auto) 0.0 K/mm3 K/mm3 (0.0-0.1) Abs Immat Gran (auto) 0.04 K/mm3 H K/mm3 (0.00-0.031) Absolute Neuts (auto) 5.4 K/mm3 K/mm3 (1.3-6.7) Absolute Nucleated RBC 0.0 K/mm3 K/mm3 (0.0-0.012) Nucleated RBC % 0.0 % % (0.0-0.2) RPR Pending Patient hx anesthesia problems: none Family hx anesthesia problems: none [facility] Past Medical History Medical History Patient denies significant medical history Surgical History Surgical History H/O section Family History Family History (Updated 08/19/20 @ 14:36 by Sadaf Roper RN) Grandparent Heart disease Social History Social History Smoking status: Never smoker Substance use: never Gender identity (if verbalized by the patient): Female Spiritual care concerns: No Anes - Eval Final PreProcedure Day of Procedure 09/08/20 06:38 Patient weight: obese Heart: regular rate and rhythm Lungs: clear to auscultation and normal air movement Airway: Mallampati scale class II Neurological: alert and oriented Last oral intake: >/= 8 hours ASA classification: II Emergent: no Anesthetic plan: proceed Anesthesia type and monitoring: regional spinal and standard monitoring Informed Consent: The patient's anesthetic plan and its attendant risks and benefits were discussed with the patient/family/POA. Questions were solicited and answers provided to the satisfaction of the patient/family/POA.
--- NOTE | 2020-09-08 07:15 | PM.IMHP ---
H&P: HPI History of Present Illness Date/Time: 09/08/20 07:15 Old 2 para 1001 prior section due to arrest of dilation presents for repeat delivery. She is 39 weeks by ultrasound and last menstrual period. care has been essentially uncomplicated and records are on the chart. Chief Complaint: Review of Systems Review of Systems: All systems reviewed & are unremarkable except as noted in HPI and below PMFSH Past Medical History Medical History Patient denies significant medical history Surgical History Surgical History H/O section Family History Family History Grandparent Heart disease Social History Social History Smoking status: Never smoker Substance use: never Gender identity (if verbalized by the patient): Female Spiritual care concerns: No Meds Home Medications and Allergies Home Medications Medication Instructions Recorded Confirmed Type PNV cmb#95-ferrous fumarate-FA 1 tablet PO DAILY 08/19/20 08/19/20 History [] cephalexin 50 mg PO DAILY 08/19/20 08/19/20 History Allergies Allergy/AdvReac Type Severity Reaction Status Date / Time No Known Allergies Allergy Verified 03/20/20 21:18 Vital Signs Vital Signs - 24 hr 09/08/20 05:46 09/08/20 06:00 Pulse Rate 112 H 113 H Blood Pressure 134/85 128/70 Exam Const: General: cooperative and healthy appearing Resp: Effort & Inspection: normal respiratory effort Auscultation: clear to auscultation bilaterally Cardio: Rate: regular rate Rhythm: regular rhythm GI: Inspection: normal to inspection : Bimanual exam- vagina & uterus: enlarged ( Fundal height 39cm heart tones 120) H&P: Results Labs Labs: Short CBC 09/08/20 Range/Units 05:37 WBC 7.7 (4.5-10.0) K/mm3 Hgb 9.5 L (12.0-15.0) g/dL Hct 29.2 L (37.0-47.0) % Plt Count 164 (150-375) k/mm3 Assessment and Plan Assessment and plan (1) 39 weeks gestation of : Code(s): Z3A.39 - 39 weeks gestation of Status: Acute (2) Previous section: Code(s): Z98.891 - History of uterine scar from previous surgery Status: Acute Additional Plan proceed with repeat low transverse section
[2020-09-08] MEDS: KETOROLAC 30 MG/ML VIAL (*BKC) IV PUSH ×2 (08:03→16:32)
--- NOTE | 2020-09-08 08:21 | PM.OBPRVD ---
OB - Delivery Note Procedure Procedure: Procedures Operation Date: 09/08/20 07:30 <No data on this case meets the specified criteria> events: Previous Route of delivery: Specimen: No Quantitative Blood Loss (ml): 650 Anesthesia type: Spinal Disposition: floor Narrative: Patient prepped and draped in usual manner for this procedure. Pfannenstiel incision was made carried down to the fascia which was extended bilaterally the length of the skin incision. Peritoneum was then readily entered without difficulty and the bladder flap was developed. Uterus scored with clear fluid noted vertex was delivered and the rest of baby delivered without difficulty and the cord was clamped. Manual removal of the placenta and exterior a holley of the uterus was then undertaken. Cavity was without clots or membranes and then closed using a 0 Monocryl running interlocking manner with good approximation hemostasis noted. Uterus was turned the abdomen gutters cleared of serosanguineous fluid and clots. Fascia was approximated 0 Vicryl left angle midline right of the midline with good approximation hemostasis noted. Subcutaneous tissues approximated 0 plain suture and kuldip used to approximate the skin edges patient are procedure well sent Amair[place] stable condition. Baby Weeks of gestation at delivery: 39 gender: Female Weight (pounds): 8 Weight (ounces): 2 score one minute: 9 score five minutes: 9
--- NOTE | 2020-09-08 08:37 | LDADM ---
This patient, Chloé Barrios, was admitted to Labor/Delivery/Recovery 119 on 09/08/20 at 05:09. Plans for scheduled section, pain management and were discussed with patient. Patient/family oriented to hospital policies and general routines including ID bracelet, bed and alarms, visiting hours, pain management, procedures, bathroom and other care routines, personal items, smoking policy, room service/diet and guest tray routines, infant security routines, and visiting hours. Patient/Family are encouraged to report perceived risks to care and to ask questions if they do not understand what they are told or what they should do. See OBIX for further documentation.
[2020-09-08] MEDS: OXYTOCIN 30 UNITS/NS 500 ML 30 UNITS/500 ML BAG 125 UNITS IV CONT (08:43)
[2020-09-08] MEDS: ONDANSETRON INJ 4 MG/2 ML VIAL (09:55)
[2020-09-08] MEDS: MORPHINE SULFATE (*CRX) 2 MG/ML INJ IV PUSH (09:55)
--- NOTE | 2020-09-08 10:45 | OBPPTRN ---
Patient transferred to post room # 287 via stretcher. Support person present. Oriented to unit, room, information board, rooming in, admission packet and security measures. Patient verbalizes understanding. PT introductions made and plan of care discussed per post op c section, pain management, breast feeding daily care activities. PT received instructions and education per one to one discussion, mom baby care guide and demonstration through the shift. pt and spouse both recipients of such instructions and no barriers to learning identified.
[2020-09-08 11:24] LABS: Rapid Plasma Reagin Non-Reactive (NonReactive)
--- NOTE | 2020-09-08 11:50 | PC.NURSE ---
Mother called out for assist with feeding. Mother reports infant eagerly fed for first feeding. is able to freely thrust tongue past gum ridge and flange both lips. Skin is intact on both nipples, no redness and bruising noted. Reviewed infant feeding cues, frequencies, duration of feedings, feeding elimination flow sheet, and signs of adequate intake. Demonstrated stimulation techniques to wake for feeding. Assisted with to breast. Reviewed positioning/alignment in cross cradle, holding breast in ?U? hold and guided asymmetrical latch on. Discussed rational for each. Infant able to latch correctly. nursed eagerly, with steady draws and frequent swallowing noted. Suggested mother stimulate while feeding to increase stimulate, increase intake and to assist with maintaining deep latch. Reviewed signs of a correct latch, effective nursing and suck swallow ratio. Infant would slip to shallow latch, mother reports tenderness. Demonstrated how to adjust latch more deeply while feeding. Mother reports she can feel change in latch and has no tenderness. Nipple care reviewed of lanolin after feedings, warm compresses as needed. Instructed mother to call out for RN assistance if she is unable to latch infant for feeding or she has discomfort with nursing.
[2020-09-08] MEDS: ACETAMINOPHEN 325 MG TABLET 650 MG PO (16:33)
[2020-09-08] MEDS: DOCUSATE SODIUM 100 MG CAPSULE PO (16:34)
[2020-09-08] MEDS: POLYSACCHARIDE IRON COMPLEX 150 MG CAPSULE PO (16:34)
[2020-09-08] MEDS: SIMETHICONE 80 MG TAB.CHEW PO (16:34)
--- NOTE | 2020-09-08 18:36 | PHAR ---
The patient's home med of Macrodantin 50mg has been verified.
[2020-09-08] MEDS: diphenhydrAMINE HCl INJ 50 MG/ML VIAL 25 MG IV PUSH (20:30)
[2020-09-08] MEDS: IBUPROFEN 600 MG TABLET PO (22:47)
[2020-09-09] VITALS: BP 126/81; PULSE 88; RESP 16; TEMP 36.8; O2SAT 98
[2020-09-09] MEDS: ACETAMINOPHEN 325 MG TABLET 650 MG PO ×2 (03:34→14:49)
[2020-09-09] MEDS: SIMETHICONE 80 MG TAB.CHEW PO ×6 (03:35→22:51)
[2020-09-09 03:47] VITALS: BP 112/70; PULSE 94; RESP 16; TEMP 36.8; O2SAT 97
[2020-09-09 05:09] LABS: Basophils Percent Auto 0.3 % (0.2-1.2); Eosinophils Percent Auto 0.5 % (0-4.4); Hematocrit 24.9 % (37.0-47.0); Hemoglobin 7.8 g/dL (12.0-15.0); Immature Granulocyte Absolute 0.03 K/mm3 (0.00-0.031); Immature Granulocyte Percent A 0.4 % (0-0.5); Lymphocytes Absolute Auto 1.35 K/mm3 (0.9-3.2); Lymphocytes Percent Auto 18.3 % (18.3-44.2); Mean Corpuscular HGB Conc 31.3 g/dl (32-36); Mean Corpuscular Hemoglobin 26.5 pg (26-34); Mean Corpuscular Volume 84.7 fl (80-100); Monocytes Absolute Auto 0.6 K/mm3 (0.1-0.6); Monocytes Percent Auto 8.1 % (2.6-8.5); Neutrophils Absolute Auto 5.3 K/mm3 (1.3-6.7); Neutrophils Percent Auto 72.4 % (45.5-73.1); Platelet Count Result 147 k/mm3 (150-375); Red Blood Count 2.94 M/mm3 (4.2-5.4); Red Cell Distribution Width 15.3 % (11.5-14.5); White Blood Count 7.4 K/mm3 (4.5-10.0)
[2020-09-09] MEDS: IBUPROFEN 600 MG TABLET PO ×3 (05:28→18:38)
[2020-09-09 08:40] VITALS: BP 120/80; PULSE 99; RESP 16; TEMP 36.8; O2SAT 97
[2020-09-09 09:30] VITALS: PULSE 99; RESP 16; O2SAT 97
--- NOTE | 2020-09-09 09:30 | PC.NURSE ---
PT introductions made and plan of care discussed per post op c section, pain management, breast feeding, daily care activities. PT verbalized understanding of such care. PT received education and instructions this shift per one to one discussion, mom baby care guide and demonstration. PT and fob recipients of such instructions and no barriers to learning identified.
[2020-09-09] MEDS: HYDROcodone/acetaminophen (*CRX) 10-325 MG TABLET 1 TAB PO ×2 (09:43→22:48)
[2020-09-09] MEDS: POLYSACCHARIDE IRON COMPLEX 150 MG CAPSULE PO ×2 (09:44→17:52)
[2020-09-09] MEDS: MULTIVIT/MIN/PREN/FOL AC/IRON TABLET 1 TAB PO (09:44)
[2020-09-09] MEDS: DOCUSATE SODIUM 100 MG CAPSULE PO ×2 (09:44→17:54)
[2020-09-09] MEDS: LANOLIN (LANSINOH) 7.5 GM CREAM 1 APPLIC TOPICAL (09:45)
--- NOTE | 2020-09-09 10:49 | WPDANLDPN2 ---
Anes-Prog Note L&D Date/Time: 09/09/20 10:49 Comfortable throughout: section Neuraxial method: spinal Epidural/Spinal procedure site: clean & non-tender Neuro status: Neuro function grossly intact. Cardiovascular status: normal Respiratory status: normal Airway patency: baseline Mental status: baseline Post-Op hydration status: normal Vital Signs: Last Vital Signs Temp 36.8 C 09/09/20 03:47 Pulse 94 09/09/20 03:47 Resp 16 09/09/20 03:47 BP 112/70 09/09/20 03:47 Pulse Ox 97 09/09/20 03:47 Pain score (VAS): 0 I/O: Intake & Output 09/08/20 09/09/20 09/09/20 23:59 07:59 15:59 Intake Total 600 Output Total 1000 2200 Balance -400 -2200 Post-procedural complaints: none Patient feedback: Patient satisfied with anesthetic care.
--- NOTE | 2020-09-09 10:50 | WPDANLDNPN2 ---
Anes-Prog Note L&D-Neuraxial Date/Time: 09/09/20 10:50 Neuraxial medications: intrathecal PF morphine Patient feedback: Patient satisfied with post-operative pain management.
--- NOTE | 2020-09-09 12:19 | PM.OBPNVD ---
OB - PN: Subj Subjective Date/time seen: 09/09/20 12:19 19yo s/p repeat section. Doing well today. Pain is well controlled. Lochia minimal. Up and out of bed without any issues. Breast feeding. Baby doing well. No chest pain, SOB. OB - PN: Obj Data Labs CBC & Chem 7: 09/09/20 03:39 Labs: Laboratory Results - last 24 hr 09/09/20 03:39 WBC 7.4 RBC 2.94 L Hgb 7.8 L Hct 24.9 L MCV 84.7 MCH 26.5 MCHC 31.3 L RDW 15.3 H Plt Count 147 L MPV 10.0 Immature Gran % (Auto) 0.4 Neut % (Auto) 72.4 Lymph % (Auto) 18.3 [place] % (Auto) 8.1 Eos % (Auto) 0.5 Baso % (Auto) 0.3 Lymph # (Auto) 1.35 [place] # (Auto) 0.6 Eos # (Auto) 0.0 Baso # (Auto) 0.0 Abs Immat Gran (auto) 0.03 Absolute Neuts (auto) 5.3 Absolute Nucleated RBC 0.0 Nucleated RBC % 0.0 OB - PN A/P Assessment and Plan (1) Previous , delivered, current hospitalization: Code(s): O34.219 - Maternal care for unspecified type scar from previous delivery Status: Acute Assessment and Plan: Routine post / postop care Pain management Ambulate Time Spent With Patient Time: Total time spent is greater than 50% in coordination of care (as documented) at patient's floor/unit and/or counseling patient: Exam Const: General: cooperative, healthy appearing, comfortable, no acute distress, well developed, alert, awake and Physically active Resp: Effort & Inspection: normal respiratory effort, able to speak in complete sentences, no audible wheezes and no cough Cardio: Rate: regular rate GI: GI Palp: No abdominal tenderness, No Tenderness to palpation present (GI) and No Guarding due to palpation present (GI) Other: incision C/D/I. Liset in place Neuro: General: oriented to person, oriented to place and oriented to time Psych: Appearance: grossly normal Mental Status: mental status grossly normal Speech and movement: Normal speech and movement present Affect: normal affect Attitude: cooperative Thought process: Normal thought process present Thought content: Yes Normal thought content present Insight: Good insight present (Psych) Judgement: Good judgement present (Psych)
[2020-09-09] MEDS: HYDROcodone/acetaminophen (*CRX) 5-325 MG TABLET 1 TAB PO (18:37)
[2020-09-09 20:00] VITALS: BP 128/79; PULSE 97; RESP 16; TEMP 36.7; O2SAT 99
[2020-09-10] MEDS: IBUPROFEN 600 MG TABLET PO ×2 (01:02→09:03)
[2020-09-10] MEDS: HYDROcodone/acetaminophen (*CRX) 5-325 MG TABLET 1 TAB PO ×3 (05:30→11:51)
--- NOTE | 2020-09-10 08:00 | PC.NURSE ---
Consult with pt., mother reports concerns with infant weight loss and jaundice level, questioning if she should begin supplementation. Mother has a HX this delivery of 1100 EBL, and had a good milk supply with last child. Advised if mother chooses to supplement to offer 15-20 mls by paced feeding after . Mother states she does not feel any breast changes at this time and will begin with supplement. Observed Mother is able to independently latch infant with appropriate positioning/alignment. She denies any nipple discomfort, is feeding as required and waking infant to feed if needed. Infant has had at least 8 effective feedings in the past 24 hours, and is currently meeting outcomes for weight, output, jaundice and feeding frequencies. Infant is near allowable weight loss and jaundice at this time. Mother states she feels confident to continue effective with supplementation until her milk is well established at home. Reviewed transition to breast milk, signs of adequate intake, and engorgement/relief. Instructed to call ICP if intake/output less than required. Reviewed regular medications mother is taking. Information provided per [place]. Reviewed community resources on the [facility] website and in the Mom/Baby guide. Information on outpatient services provided. Mother has no further questions at this time.
[2020-09-10 08:40] VITALS: BP 131/77; PULSE 93; RESP 16; TEMP 36.6; O2SAT 99
[2020-09-10] MEDS: POLYSACCHARIDE IRON COMPLEX 150 MG CAPSULE PO (09:03)
[2020-09-10] MEDS: MULTIVIT/MIN/PREN/FOL AC/IRON TABLET 1 TAB PO (09:03)
[2020-09-10] MEDS: DOCUSATE SODIUM 100 MG CAPSULE PO (09:03)
[2020-09-10] MEDS: SIMETHICONE 80 MG TAB.CHEW PO (09:11)
--- NOTE | 2020-09-10 10:30 | PM.OBDSVD ---
DS: Admitting Diagnosis Admitting Diagnosis Admitting Diagnosis: Previous section DS: Discharge Diagnosis Discharge Diagnosis (1) Previous , delivered, current hospitalization: Code(s): O34.219 - Maternal care for unspecified type scar from previous delivery Status: Acute Assessment and Plan: Routine post / postop care Pain management Ambulate OB - DS: Summary OB Procedures : None OB Procedures Intrapartum: low cervical, transverse OB Procedures: : None Peripartum Data Procedures: Procedures Operation Date: 09/08/20 07:30 Actual Procedure Side Surgeon p Repeat Section Mykel Becerra MD Time Spent with Patient Time attestation: Total time spent providing and/or coordinating discharge services: Exam Const: General: cooperative, healthy appearing, comfortable, no acute distress, well developed, alert, awake and Physically active Orientation/consciousness: oriented to person, oriented to place and oriented to time Resp: Effort & Inspection: normal respiratory effort, able to speak in complete sentences, no audible wheezes and no cough Auscultation: clear to auscultation bilaterally Cardio: Rate: regular rate Rhythm: regular rhythm GI: Inspection: normal to inspection Other: incision C/D/I. [place] in place Neuro: General: oriented to person, oriented to place and oriented to time Psych: Appearance: grossly normal Mental Status: mental status grossly normal Speech and movement: Normal speech and movement present Affect: normal affect Attitude: cooperative Thought process: Normal thought process present Insight: Good insight present (Psych) Judgement: Good judgement present (Psych) Discharge Plan Discharge Attending physician on discharge: Mykel Becerra Discharging Clinician: Srinivas Sheffield Patient Disposition: Home, Self-Care Activity: may shower, no straining, no driving and pelvic rest Diet: regular Patient Instructions: Antibiotic Form Stand Alone Forms: General Discharge Information Follow-up/Referrals: Mykel Becerra MD [Physician] - Discharge Medications: New hydrocodone-acetaminophen 5-325 mg Tablet 1 tablet PO Q6H PRN (Reason: Pain (Scale Score 7-10)) 4 Days Qty: 16 RF: 0 polysaccharide iron complex 150 mg iron Capsule 150 mg PO BIDWM Qty: 60 RF: 0 docusate sodium 100 mg Capsule 100 mg PO BID Qty: 60 RF: 0 ibuprofen 600 mg Tablet 600 mg PO Q6H PRN (Reason: Cramping) Qty: 90 RF: 0 Continued PNV cmb#95-ferrous fumarate-FA [] 28 mg iron- 800 mcg Tablet 1 tablet PO DAILY RF: 0 nitrofurantoin macrocrystal 50 mg capsule 50 mg PO DAILY RF: 0 Date of admission: 09/08/20 05:09 Primary Care Provider: PHYSICIAN,COLLEGE INSTRUCTOR Admitting Provider: Mykel Becerra Attending physician on admission: Mykel Becerra Condition: Stable
--- NOTE | 2020-09-10 11:25 | PC.NURSE ---
Patient instructed on viewing the discharge video Mother & Baby Care, The First Two Weeks . Patient was given the opportunity and encouraged to ask questions. Patient verbalized understanding of information shared and has been given the mother/baby guide for home reference.
== END 2020-09-10 12:30 | disposition home or self-care (01) | DRG 540 ==
LOC: ANHLDR 05:37 → ANHOB2 09-10 10:10 → ANHLDR 09-11 12:40 → ANHOB2 09-11 12:40
PROVIDERS: Admitting Provider Obstetrics & Gynecology; Visit Provider Obstetrics & Gynecology
PROC: 10D00Z1 Extraction of Products of Conception, Low, Open Approach (ICD-10-PCS; CPT 59514; principal; 2020-09-08 07:30)
DX: O34.211 Maternal care for low transverse scar from previous cesarean delivery (principal); Z37.0 Single live birth; Z3A.39 39 weeks gestation of pregnancy; O99.214 Obesity complicating childbirth; E66.9 Obesity, unspecified
CPT/HCPCS: 36415; 85025; 86592; 86850; 86900; 86901; A9270; J0131; J1200; J1885; J2270; J2274; J2405; J2590; J7120

== ENCOUNTER 2020-12-23 14:20 | Outpatient (CLI) | payer OTHER, SELFPAY ==
--- NOTE | ~2020-12-23 | US_ITS ---
US retroperitoneal comp DATE: 12/23/2020 14:51 INDICATION: Recurrent urinary tract infection TECHNIQUE: Real-time imaging of kidneys and urinary bladder COMPARISON: None FINDINGS: Right kidney measures 10.8 cm length, left kidney 11.8 cm length. Minimal nonspecific hydronephrosis of the kidneys. No renal mass lesion is evident. Bilateral ureteral jets were demonstrated. No intraluminal mass lesion of the urinary bladder. IMPRESSION: Nonspecific minimal bilateral hydronephrosis Reviewed, dictated and finalized at [facility] Reviewed, dictated and finalized at [facility].
== END 2020-12-23 14:21 | disposition home or self-care (01) ==
LOC: ANHIMG 14:24
PROVIDERS: Visit Provider Nurse Practitioner
DX: N39.0 Urinary tract infection, site not specified (principal)
CPT/HCPCS: 76770

== ENCOUNTER 2020-12-26 08:16 | Emergency (ER) | payer OTHER, SELFPAY ==
[2020-12-26 08:26] VITALS: BP 118/71; PULSE 117; RESP 16; TEMP 38; O2SAT 99
--- NOTE | 2020-12-26 08:52 | ED.URI ---
HPI - URI/Sore Throat General Chief Complaint: Upper Respiratory Infection Stated Complaint: Sore Throat,Ear Pain Time Seen by Provider: 12/26/20 08:40 Source: patient Mode of arrival: ambulatory Limitations: no limitations History of Present Illness HPI Narrative: Chloé Barrios is a 20 yo female [facility] with right ear pain and sore throat that started 2 days ago. She is unable to eat because of enlarged tender lymph nodes, subjective fever Related Data Allergies Allergy/AdvReac Type Severity Reaction Status Date / Time No Known Allergies Allergy Verified 12/26/20 09:02 Review of Systems Review of Systems: CONSTITUTIONAL: Denies fever, chills, sweats. EYES: Denies visual changes, redness, discharge. ENT: Denies rhinorrhea, congestion, has sore throat, right otalgia. CARDIOVASCULAR: Denies chest pain, palpitations, edema. RESPIRATORY: Denies dyspnea, wheezing, cough GASTROINTESTINAL: Denies abdominal pain, nausea, vomiting, diarrhea. GENITOURINARY: Denies dysuria, hematuria, abnormal discharge SKIN: Denies rash or itching. NEUROLOGIC: Denies numbness, or focal weakness. PSYCHIATRIC: Denies anxiety or depression. PMFSH Past Medical History Medical History Patient denies significant medical history Surgical History Surgical History H/O section Family History Family History Grandparent Heart disease Social History Social History Smoking status: Never smoker Second hand tobacco smoke exposure: No Substance use: never Gender identity (if verbalized by the patient): Female Spiritual care concerns: No Exam Narrative: GENERAL: This is a well-nourished, well-developed patient, in mild distress. HEAD: normocephalic, atraumatic. EYES: PERRL. Sclera clear/white. Vision is grossly intact. EARS: External ears normal, left auditory canals clear, bright erythema and without drainage, TMs normal without perforation. Hearing grossly intact. NOSE: External nose normal without nasal discharge, nares without redness, no rhinorrhea. THROAT: Mucous membranes moist, posterior pharynx erythema with exudate NECK: Neck supple, tender enlarged lymph nodes submandibular bilaterally CARDIOVASCULAR: Regular rate and rhythm without murmurs, gallops, or rubs. RESPIRATORY: Clear to auscultation. Breath sounds equal bilaterally. No wheezes, rales, or rhonchi. GASTROINTESTINAL: Abdomen soft, non-tender, SKIN: warm, intact with no suspicious lesions or rash, good texture and turgor. NEURO: awake, alert, and oriented to person, place and time. There were no obvious focal neurologic abnormalities. Steady gait EXTREMITIES: Normal range of motion. BACK: Nontender without deformity Course Course Emergency Course: Patient came with ear pain and sore throat Strep test negative Started on amoxicillin based on symptoms and exam Vital Signs Vital signs: Vital Signs Temperature 100.4 F H 12/26/20 08:26 Pulse Rate 117 H 12/26/20 08:26 Respiratory Rate 16 12/26/20 08:26 Blood Pressure 118/71 12/26/20 08:26 Pulse Oximetry 99 12/26/20 08:26 Temperature 100.4 F H 12/26/20 08:26 Pulse Rate 117 H 12/26/20 08:26 Respiratory Rate 16 12/26/20 08:26 Blood Pressure 118/71 12/26/20 08:26 Pulse Oximetry 99 12/26/20 08:26 MDM - URI/Sore Throat Differential Diagnosis Differential diagnosis: Likely upper respiratory infection, otitis media, sinusitis, bronchitis, influenza, pharyngitis and other Lab Data Labs: Strep Screen Presumptive Negative *(Reference Range: Negative)* Critical Care Time Critical Care Time Critical Care Time: No Discharge Plan Discharge Clinical Impression: Enlarged lymph nodes Pharyngiti
== END 2020-12-26 09:35 | disposition home or self-care (01) ==
PROVIDERS: Emergency Provider Nurse Practitioner
DX: R59.9 Enlarged lymph nodes, unspecified (principal); J02.9 Acute pharyngitis, unspecified
CPT/HCPCS: 87081; 87880; 99213; G0463

== ENCOUNTER 2021-07-13 19:47 | Emergency (ER) | payer OTHER, SELFPAY ==
--- NOTE | 2021-07-13 19:52 | ED.URI ---
HPI - URI/Sore Throat General Chief Complaint: Upper Respiratory Infection Stated Complaint: Sore Throat Time Seen by Provider: 07/13/21 19:57 Source: patient and RN notes reviewed Mode of arrival: ambulatory Limitations: no limitations History of Present Illness HPI Narrative: 20-year-old female presented for complaint of sore throat for 3 days. States is worse at night. Endorses associated headache. She denies any nausea, vomiting, sinus pressure congestion, fevers or chills. She has been taking ibuprofen as needed for symptoms. She denies sick contacts. Endorses a history of strep throat frequently. MD elicited complaint: cough Related Data Home Medications Medication Instructions Recorded Confirmed No Home Medications 07/13/21 07/13/21 Allergies Allergy/AdvReac Type Severity Reaction Status Date / Time No Known Allergies Allergy Verified 07/13/21 19:51 Review of Systems Review of Systems: CONSTITUTIONAL: denies malaise, chills, sweats, fever EYES: Denies visual changes, redness, or discharge ENT: Denies rhinorrhea, congestion, sinus pain, otalgia CARDIOVASCULAR: Denies chest pain, palpitations, edema RESPIRATORY: Denies dyspnea cough, post nasal drainage. GASTROINTESTINAL: Denies abdominal pain, nausea, vomiting, diarrhea SKIN: Denies rash or itching MUSCULOSKELETAL: denies myalgia NEUROLOGIC: Denies headache PMFSH Past Medical History Medical History Patient denies significant medical history Surgical History Surgical History H/O section Family History Family History Grandparent Heart disease Social History Social History Smoking status: Never smoker Second hand tobacco smoke exposure: No Substance use: never Gender identity (if verbalized by the patient): Female Spiritual care concerns: No Exam Narrative: GENERAL: well-appearing HEAD: Normocephalic EYES: conjunctivae clear ENT: Mucous membranes moist. TM pearly hernandez with dull light reflex bilaterally; no tragal tenderness. Oropharynx normal without lesions or exudate, no drooling, no hoarseness, no trismus, uvula midline. No tripod positioning, muffled voice, soft palate or pharyngeal wall bulging NECK: Supple. No lymphadenopathy CHEST: Clear to auscultation, breath sounds equal. No respiratory distress, speaks in full sentences. HEART: Regular rate and rhythm. No murmur heard. SKIN: Warm, dry, no rash. NEURO: Alert and oriented x3. PSYCH: Normal mood and affect Course Course Emergency Course: Patient is aware of diagnosis, understands and agrees to treatment plan. Anticipatory guidance given. Patient agrees to follow-up as directed and is aware of reasons to seek care at the emergency department. Portions of this record may have been created with voice recognition software Level of Care: Express Care Visit Vital Signs Vital signs: reviewed MDM - URI/Sore Throat MDM Narrative Medical decision making narrative: strep negative. Advised supportive treatments. Differential Diagnosis Differential diagnosis: Likely upper respiratory infection, sinusitis and viral infection Discharge Plan Discharge Clinical Impression: Pharyngitis Qualifiers: Pharyngitis/tonsillitis etiology: unspecified etiology Qualified Code(s): J02.9 - Acute pharyngitis, unspecified Patient Disposition: Home, Self-Care Condition: Stable Instructions: Antibiotic Form, Strep Throat (ED) Additional Instructions: Rapid strep swab was negative today You will be notified in a few days if the culture comes back positive for strep, and appropriate antibiotics will be called in at that time. if symptoms are due to a viral illness, it is not treated with antibiotics. Viral symptoms can be present for up
[2021-07-13 19:54] VITALS: BP 126/82; PULSE 77; RESP 16; TEMP 36.4; O2SAT 100
== END 2021-07-13 20:02 | disposition home or self-care (01) ==
PROVIDERS: Emergency Provider Nurse Practitioner Family
DX: J02.9 Acute pharyngitis, unspecified (principal)
CPT/HCPCS: 87081; 87880; 99213; G0463

== ENCOUNTER 2022-10-02 08:30 | Emergency (ER) | payer OTHER, SELFPAY ==
--- NOTE | ~2022-10-02 | US_ITS ---
EXAMINATION: US pelvic complete w TV DATE: 10/02/2022 10:25 INDICATION: Lower abdominal pain TECHNIQUE: Multiple transabdominal and endovaginal sonographic images of the pelvis were obtained. COMPARISON: 08/05/2022 FINDINGS: The uterus measures 8.9 x 4.1 x 5 cm. The endometrial complex measures 6 mm. The right ovar y measures 3.3 x 2 x 1.9 cm. The left ovary measures 1.5 x 2.2 x 2 cm. There is normal vascular flow in the ovaries. There is no free fluid in the pelvis. IMPRESSION: 1. No sonographic correlate for the patient's symptoms. Reviewed, dictated and finalized at location A.
--- NOTE | ~2022-10-02 | CT_ITS ---
EXAMINATION: CT abdomen pelvis wo con DATE: 10/02/2022 09:34 INDICATION: Left flank pain TECHNIQUE: Computed tomography (CT) of the abdomen and pelvis was performed without intravenous contr ast. The dose-length product (DLP) was 751.14 mGy-cm. Automated exposure control and iterative recons truction technique were employed. COMPARISON: None FINDINGS: The lung bases are clear. The heart size is normal. The liver, pancreas, gallbladder, and a drenal glands are normal. There is mild splenomegaly. The kidneys are unremarkable. No pathologically enlarged abdominal or pelvic lymph nodes are identified. No free intraperitoneal gas or evidence of bowel obstruction. A large volume of colonic stool is present. There is a fat-containing umbilical h ernia. IMPRESSION: 1. Constipation. 2. Mild splenomegaly. Reviewed, dictated and finalized at location A.
[2022-10-02 08:51] VITALS: BP 138/89; PULSE 93; RESP 20; O2SAT 100
[2022-10-02 08:55] LABS: Basophils Percent Auto 0.5 % (0.2-1.2); Eosinophils Absolute Auto 0.1 K/mm3 (0-0.3); Hematocrit 37.3 % (37.0-47.0); Immature Granulocyte Absolute 0.02 K/mm3 (0.00-0.031); Immature Granulocyte Percent A 0.3 % (0-0.5); Lymphocytes Absolute Auto 1.38 K/mm3 (0.9-3.2); Mean Corpuscular HGB Conc 32.2 g/dl (32-36); Mean Corpuscular Hemoglobin 28.1 pg (26-34); Mean Corpuscular Volume 87.4 fl (80-100); Mean Platelet Volume 9.2 fl (7.4-10.4); Monocytes Absolute Auto 0.5 K/mm3 (0.1-0.6); Neutrophils Percent Auto 66.2 % (45.5-73.1); Platelet Count Result 203 k/mm3 (150-375); Red Blood Count 4.27 M/mm3 (4.2-5.4)
[2022-10-02 08:57] LABS: Appearance Urine Clear (Clear); Bilirubin Urine Negative (Negative); Blood Urine Negative (Negative); Color Urine Yellow (Yellow); Glucose Urine UA Negative (Negative); Ketones Urine Negative (Negative); Leukocyte Esterase Ur Negative LEU/UL (Negative); Nitrate Urine Negative (Negative); Protein Urine Negative (Negative); Specific Grav Ur 1.016 (1.001-1.035)
[2022-10-02 08:59] LABS: Add Urine Microscopic? NO
--- NOTE | 2022-10-02 09:00 | ED.FEMALEGU ---
HPI - Female Genitourinary General Chief complaint: Urogenital-Female Stated complaint: uti/fever Time Seen by Provider: 10/02/22 08:56 Source: patient Mode of arrival: ambulatory Limitations: no limitations History of Present Illness HPI Narrative: Patient is a 21 y/o female who presents to the ED with c/o urinary sx's. Patient reports she developed dysuria, urinary frequency, urgency around 2 weeks ago. She tried increasing her fluid intake but states sx's persisted. She ordered Bactrim online and has been taking this since Monday. Her urinary sx's have resolved, but she now reports having intermittent fevers (Tmax 100.8), L flank pain, lower abdominal pain. She has been taking Tylenol and Ibuprofen for her sx's. Denies any nausea, vomiting, vaginal bleeding, diarrhea. Reports mild constipation which is typical for her. She does also note history of ovarian cyst. Denies history of kidney stones. Related Data Home Medications Medication Instructions Recorded Confirmed No Home Medications 07/13/21 10/19/21 Allergies Allergy/AdvReac Type Severity Reaction Status Date / Time No Known Allergies Allergy Verified 10/02/22 08:51 Review of Systems Review of Systems: CONSTITUTIONAL: See HPI. CARDIOVASCULAR: Denies chest pain. RESPIRATORY: Denies dyspnea. GASTROINTESTINAL: See HPI. GENITOURINARY: See HPI. SKIN: Denies rash or itching. MUSCULOSKELETAL: See HPI. NEUROLOGIC: Denies headache, numbness, or weakness. All systems reviewed & are unremarkable except as noted in HPI and below PMFSH Past Medical History Medical History Patient denies significant medical history Surgical History Surgical History H/O section 06/05/14 primary c/s--lack of progress 09/08/20 rpt c/s Family History Family History Grandparent Heart disease maternal grandmother Hypertension maternal grandmothr Social History Social History Smoking status: Never smoker Second hand tobacco smoke exposure: No Alcohol intake: current Alcohol use details: 5 per month Substance use: never Substance use type: does not use Lack of Transportation: No Lack of Food: Never True Current Housing: I Have Housing Concerned About Future Housing: No Difficulty Paying Gas/Electric Bills: No Difficulty Paying for Meds: No Currently Unemployed: No Education: High School Diploma/GED Difficulty w/ Childcare or Family Care: No Living arrangements: other Additional living arrangements comments: Occupation/Education: other 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 HEAD: Normocephalic, atraumatic. NECK: Supple. No adenopathy, no masses. RESPIRATORY: Airway patent, respirations nonlabored. Clear to auscultation bilaterally, no rales, rhonchi, wheezing. CARDIOVASCULAR: Regular rate and rhythm without murmurs, rubs, or gallops. Radial pulses 2+ and equal bilaterally. ABDOMINAL: Soft, mild tenderness throughout suprapubic region and left lower abdomen, nondistended, no hepatosplenomegaly. Normoactive BS. Positive CVA tenderness on left. MUSCULOSKELETAL: Moves all extremities. Strength/ROM intact without gross deformities. SKIN: Warm, dry, normal color. No rashes. NEURO: A&O X3. Speech clear. Cranial nerves II-XII grossly intact. Steady gait. No ataxic movements. PSYCHIATRIC: Appropriate mood and affect. Normal interaction. Course Vital Signs Vital signs: Vital Signs Pulse Rate 9
[2022-10-02 09:07] LABS: Alanine Aminotransferase 21 U/L (6-35); Albumin Level 4.2 g/dL (3.5-5.1); Alkaline Phosphatase 100 U/L (38-126); Anion Gap 8 mmol/L (8-16); Aspartate Amino Transferase 34 U/L (14-36); Bilirubin,Total 0.6 mg/dL (0.2-1.3); Blood Urea Nitrogen 10 mg/dL (7-17); Calcium 8.5 mg/dL (8.4-10.2); Carbon Dioxide 25 mmol/L (22-30); Chloride 105 mmol/L (98-107); Estimated CRCL calculation 95 ml/min; Estimated Glomerular Filt Rate > 60; Glucose 96 mg/dL (65-110); Lipase 61 U/L (23-300); Sodium 138 mmol/L (137-145)
[2022-10-02 09:18] VITALS: TEMP 36.4
[2022-10-02] MEDS: SODIUM CHLORIDE 0.9% IV 1,000 ML 999 ML IV CONT (09:20)
[2022-10-02 10:25] VITALS: BP 120/87; PULSE 84; RESP 20; O2SAT 100
[2022-10-02 11:31] VITALS: BP 115/75; PULSE 81; RESP 18; O2SAT 100
== END 2022-10-02 11:52 | disposition home or self-care (01) ==
PROVIDERS: Preventive Medicine Aerospace Medicine; Emergency Provider Physician Assistant
DX: K59.00 Constipation, unspecified (principal); R50.9 Fever, unspecified; R10.9 Unspecified abdominal pain; R16.1 Splenomegaly, not elsewhere classified
CPT/HCPCS: 36415; 74176; 76830; 76856; 80053; 81003; 81025; 83690; 85025; 96360; 99284; J7030

== ENCOUNTER 2023-03-12 21:12 | Emergency (ER) | payer OTHER, SELFPAY ==
[2023-03-12] VITALS (14 sets, daily range): BP systolic 113–140; BP diastolic 65–76; PULSE 105–127; RESP 16–28; TEMP 37.2–37.4; O2SAT 99–100
--- NOTE | ~2023-03-12 | XR_ITS ---
Clinical Indication: Fever PA and lateral views of the chest: Comparison: None Findings: The lungs are clear, without evidence of focal consolidation or pleural effusion. Cardiome diastinal silhouette is within normal limits. Bones and soft tissues are unremarkable. Impression: Normal chest. Reviewed, dictated and finalized at location . ELING PASSENGER AGENT Impression: Normal chest.
--- NOTE | ~2023-03-12 | CT_ITS ---
CT of the Abdomen and Pelvis: Indication: UTI, flank pain Technique: 2.5 mm axial scans were obtained through the abdomen and pelvis following intravenous adm inistration of 100 cc of Omnipaque 350. Dose reduction technique was used on this scan by utilizing a utomated exposure control and iterative reconstruction technique. The dose-length product (DLP) was 1 150.88 mGy-cm. COMPARISON: 10/02/2022 Findings: Scans through the lung bases are unremarkable. The liver, spleen, pancreas, gallbladder, adrenals and left kidney are within normal limits. There is patchy decreased enhancement of the right renal parenchyma with increased enhancement of the urothel ium of the right ureter and renal pelvis. No evidence of aortic aneurysm. No lymphadenopathy. No bowel obstruction or bowel wall thickening. There is no evidence to suggest acute appendicitis. Images through the pelvis were performed. Urinary bladder unremarkable. No adnexal mass seen. No asci ciara. Impression: Right pyelonephritis, with probable involvement of the urothelium of the right ureter and right renal pelvis. Reviewed, dictated and finalized at location . IER Impression: Right pyelonephritis, with probable involvement of the urothelium of the right ureter and right renal pelvis.
[2023-03-12] MEDS: ACETAMINOPHEN 500 MG TABLET 1000 MG PO (21:46)
--- NOTE | 2023-03-12 21:59 | ED.FEVER ---
HPI - Fever General Chief Complaint: Fever Stated Complaint: Fever on and off since 17th Time Seen by Provider: 03/12/23 21:34 Source: patient Mode of arrival: ambulatory Limitations: no limitations History of Present Illness HPI Narrative: This is a 22 year old female that presents to the ER for intermittent fevers ongoing over the last couple of days. Reports dark urine. She has been taking Tylenol and Ibuprofen for fever. Reports right flank pain. Denies cough, congestion, sore throat, abdominal pain, dysuria, or hematuria. Related Data Allergies Allergy/AdvReac Type Severity Reaction Status Date / Time No Known Allergies Allergy Verified 10/02/22 08:51 Review of Systems Review of Systems: CONSTITUTIONAL: Reports fever ENT: Denies rhinorrhea, congestion, sore throat RESPIRATORY: Denies cough GASTROINTESTINAL: Reports abdominal/flank pain. Denies nausea, vomiting, or diarrhea. GENITOURINARY: Denies dysuria or hematuria. All systems reviewed & are unremarkable except as noted in HPI and below PMFSH Past Medical History Medical History Patient denies significant medical history Surgical History Surgical History H/O section 06/05/14 primary c/s--lack of progress 09/08/20 rpt c/s Family History Family History Grandparent Heart disease maternal grandmother Hypertension maternal grandmothr Social History Social History Smoking status: Never smoker Second hand tobacco smoke exposure: No Alcohol intake: current Alcohol use details: 5 per month Substance use: never Substance use type: does not use Lack of Transportation: No Lack of Food: Never True Current Housing: I Have Housing Concerned About Future Housing: No Difficulty Paying Gas/Electric Bills: No Difficulty Paying for Meds: No Currently Unemployed: No Education: High School Diploma/GED Difficulty w/ Childcare or Family Care: No Living arrangements: other Additional living arrangements comments: Occupation/Education: other 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 HEAD: Normocephalic, atraumatic. EYES: EOMI. ENT: Nares clear, no rhinorrhea or epistaxis. Mucous membranes moist. Oropharynx without tonsillar hypertrophy exudate or other lesions. Bilateral TMs pearly hernandez non-bulging NECK: Supple. No adenopathy or masses. CHEST: Clear to auscultation. No respiratory distress. No wheezes rales or rhonchi HEART: Regular rate and rhythm. No murmur heard. Normal peripheral pulses. ABDOMEN: Soft, nondistended, normal active bowel sounds. Mild tenderness to palpation throughout the lower abdomen, without guarding. Right sided CVA tenderness EXTREMITIES: Normal range of motion. No edema. SKIN: Warm, dry, no rash. NEURO: No focal deficits. Alert and oriented x3. PSYCH: Normal mood and affect Course Vital Signs Vital signs: Vital Signs Pulse Rate 127 H 03/12/23 21:14 Respiratory Rate 16 03/12/23 21:14 Blood Pressure 140/76 03/12/23 21:14 Pulse Oximetry 100 03/12/23 21:14 Oxygen Delivery Room Air 03/12/23 21:14 Temperature 98.9 F 03/12/23 23:31 Pulse Rate 106 H 03/12/23 23:31 Respiratory Rate 20 03/12/23 23:31 Blood Pressure 113/71 03/12/23 23:30 Pulse Oximetry 100 03/12/23 23:31 Oxygen Delivery Room Air 03/12/23 21:14 MDM - Fever MDM Narrative Medical decision making narrative: Patient presents to the emergency department for fevers and r
[2023-03-12 22:00] LABS: Influenza A QL RT-PCR Negative (Negative); Influenza B QL RT-PCR Negative (Negative); RSV RNA, RT-PCR Negative (Negative); SARS-CoV-2 RNA PCR Negative (Negative)
[2023-03-12] MEDS: SODIUM CHLORIDE 0.9% IV 1,000 ML 999 ML IV CONT (22:24)
--- NOTE | 2023-03-12 22:26 | PC.NURSE ---
Patient taken to xray at this time.
[2023-03-12 22:32] LABS: Basophils Percent Auto 0.6 % (0.2-1.2); Eosinophils Percent Auto 0.1 % (0-4.4); Hematocrit 35.2 % (37.0-47.0); Hemoglobin 11.1 g/dL (12.0-15.0); Immature Granulocyte Percent A 1.4 % (0-0.5); Lymphocytes Absolute Auto 0.53 K/mm3 (0.9-3.2); Lymphocytes Percent Auto 7.5 % (18.3-44.2); Mean Corpuscular HGB Conc 31.5 g/dl (32-36); Mean Corpuscular Hemoglobin 27.8 pg (26-34); Mean Platelet Volume 9.7 fl (7.4-10.4); Monocytes Absolute Auto 0.6 K/mm3 (0.1-0.6); Monocytes Percent Auto 8.9 % (2.6-8.5); Neutrophils Absolute Auto 5.8 K/mm3 (1.3-6.7); Neutrophils Percent Auto 81.5 % (45.5-73.1); Platelet Count Result 165 k/mm3 (150-375); Red Cell Distribution Width 12.9 % (11.5-14.5); White Blood Count 7.1 K/mm3 (4.5-10.0)
[2023-03-12 22:38] LABS: Appearance Urine Cloudy (Clear); Bacteria Urine Rare /hpf; Bilirubin Urine Negative (Negative); Blood Urine 1+ (Negative); Color Urine Yellow (Yellow); Glucose Urine UA Negative (Negative); Ketones Urine Negative (Negative); Leukocyte Esterase Ur 2+ LEU/UL (Negative); Nitrate Urine Negative (Negative); Non Pathogenic Casts 0-2; Protein Urine 1+ mg/dL (Negative); Specific Grav Ur 1.008 (1.001-1.035); Squamous Epithelial Cell Urine Few /hpf (Few); WBC Urine 51-100 /hpf
[2023-03-12 22:46] LABS: Add Urine Microscopic? YES
[2023-03-12 22:50] LABS: Alanine Aminotransferase 22 U/L (6-35); Albumin Level 3.6 g/dL (3.5-5.1); Alkaline Phosphatase 127 U/L (38-126); Anion Gap 7 mmol/L (8-16); Aspartate Amino Transferase 29 U/L (14-36); Bilirubin,Total 1.3 mg/dL (0.2-1.3); Blood Urea Nitrogen 9 mg/dL (7-17); Calcium 8.8 mg/dL (8.4-10.2); Carbon Dioxide 27 mmol/L (22-30); Chloride 105 mmol/L (98-107); Estimated CRCL calculation 125 ml/min; Estimated Glomerular Filt Rate > 60; Glucose 146 mg/dL (65-110); Potassium 3.4 mmol/L (3.4-5.0); Sodium 139 mmol/L (137-145)
--- NOTE | 2023-03-12 23:03 | PC.NURSE ---
Patient taken to CT at this time.
[2023-03-13] VITALS: PULSE 111; RESP 19; O2SAT 97
[2023-03-13 00:01] VITALS: BP 109/69; PULSE 108; RESP 21; O2SAT 99
[2023-03-13 00:15] VITALS: PULSE 101; RESP 21; O2SAT 100
== END 2023-03-13 00:27 | disposition home or self-care (01) ==
PROVIDERS: Emergency Medicine; Emergency Provider Physician Assistant
DX: N12 Tubulo-interstitial nephritis, not specified as acute or chronic (principal); Z20.822 Contact with and (suspected) exposure to COVID-19
CPT/HCPCS: 36415; 71046; 74177; 80053; 81001; 81025; 85025; 87077; 87086; 87088; 87186; 87637; 96361; 96365; 99284; A9270; J0696; J7030; Q9967

== ENCOUNTER 2023-03-14 13:09 | Inpatient (IN) | payer OTHER, SELFPAY ==
[2023-03-14] VITALS (8 sets, daily range): BP systolic 116–137; BP diastolic 75–87; PULSE 95–128; RESP 16–29; TEMP 36.8–37.9; O2SAT 91–99; BMI 33.2
--- NOTE | ~2023-03-14 | CT_ITS ---
EXAMINATION: CTA chest PE protocol DATE: 03/14/2023 21:20 INDICATION: Shortness of breath. TECHNIQUE: Computed tomography angiography (CTA) of the chest was performed with 100 mL Omnipaque-350 intravenous contrast timed to evaluate the pulmonary arteries. Coronal maximum intensity projection 3D-reconstructions were created by the technologist. Automated exposure control and iterative reconst ruction technique were employed. The dose-length product was 397.62 mGy-cm. COMPARISON: CT abdomen and pelvis 03/14/2023 FINDINGS: There is no pneumonia or pleural effusion. The heart size is normal. No pericardial effusio n. There is no pulmonary embolus. There is mild thoracic spondylosis. IMPRESSION: 1. No pulmonary embolus. Reviewed, dictated and finalized at location E. LER SECTIONS ASSEMBLER IMPRESSION: 1. No pulmonary embolus.
--- NOTE | ~2023-03-14 | CT_ITS ---
EXAMINATION: CT abdomen pelvis wo con DATE: 03/14/2023 19:00 INDICATION: Right abdominal pain. Fever. TECHNIQUE: Computed tomography (CT) of the abdomen and pelvis was performed without intravenous contr ast. Automated exposure control and iterative reconstruction technique were employed. The dose-length product was 851.25 mGy-cm. COMPARISON: CT abdomen and pelvis 03/12/2023 FINDINGS: The visualized portions of the lung bases are clear without pneumonia or pleural effusion. The heart size is normal. No pericardial effusion. The liver is normal. There is contrast in the gall bladder, which is normal in size. The spleen, pancreas, adrenal glands, and left kidney are normal. T here are striations of hypodensity in the right kidney. There is fat stranding around the right kidne y. There is mild right hydronephrosis and hydroureter. There is no urolithiasis. There are no dilated loops of bowel. The appendix is normal. There are no pathologically enlarged lymph nodes. There is n o free intraperitoneal fluid. There is mild thoracic spondylosis. IMPRESSION: 1. Right-sided pyelonephritis with mild right hydronephrosis and hydroureter, stable from 03/12/2023. Reviewed, dictated and finalized at location E. RETE TECHNICIAN IMPRESSION: 1. Right-sided pyelonephritis with mild right hydronephrosis and hydroureter, s table from 03/12/2023.
--- NOTE | ~2023-03-14 | XR_ITS ---
EXAMINATION: XR chest 2V DATE: 03/14/2023 18:03 INDICATION: Shortness of breath. Fever. TECHNIQUE: Frontal and lateral views of the chest were obtained. COMPARISON: Chest 2 views 03/12/23, CT abdomen and pelvis 03/12/2023 FINDINGS: There is no pneumonia, pleural effusion, or pneumothorax. The heart size is normal. IMPRESSION: 1. No acute cardiopulmonary disease. Reviewed, dictated and finalized at location E. ETING SPECIALIST
--- NOTE | ~2023-03-14 | CT_ITS ---
EXAMINATION: CT brain wo con DATE: 03/16/2023 18:02 INDICATION: Headache. TECHNIQUE: Computed tomography (CT) of the head was performed without intravenous contrast. The mA wa s adjusted according to patient size. Iterative reconstruction technique was employed. The dose-lengt h product was 605.33 mGy-cm. COMPARISON: None FINDINGS: There is no intracranial hemorrhage, acute infarction, or abnormal intracranial mass lesion . The ventricles are normal in size. There is mild mucosal thickening in the ethmoid sinuses. The mas toid air cells are normal. The orbits are normal. IMPRESSION: 1. Normal brain. Reviewed, dictated and finalized at location E. LRY SALES IMPRESSION: 1. Normal brain.
--- NOTE | 2023-03-14 17:06 | PC.NURSE ---
pt up to desk for 3rd time. this time temp is 100.9 requesting tylenol
--- NOTE | 2023-03-14 18:21 | ED.SOB ---
HPI - SOB/Dyspnea General Chief Complaint: Shortness of Breath/Dyspnea Stated Complaint: shortness of breath Time Seen by Provider: 03/14/23 17:41 Source: patient and old records reviewed Mode of arrival: ambulatory Limitations: no limitations History of Present Illness HPI Narrative: Patient is a 22-year-old female who presents the ED with report of fevers, abdominal/back pain. Patient reports she was seen ED here on Monday and diagnosed with right-sided pyelonephritis. She was given dose of ceftriaxone in the ED, discharged on cefdinir. Patient has had 3 doses of this so far. Per records, urine culture did grow out E coli. Sensitivity report still pending. Patient reports having persistent fevers, up to 102.8? F at home, worsening right-sided abdominal and back pain, nausea, 1 episode of vomiting, oliguria, and shortness of breath. She last took Tylenol for her symptoms around 11:00 a.m. Denies dysuria/hematuria. Denies CP, cough/cold sx's. Related Data Allergies Allergy/AdvReac Type Severity Reaction Status Date / Time No Known Allergies Allergy Verified 03/14/23 17:30 Review of Systems Review of Systems: CONSTITUTIONAL: See HPI. ENT: Denies rhinorrhea, congestion, sore throat. CARDIOVASCULAR: Denies chest pain. RESPIRATORY: See HPI. GASTROINTESTINAL: See HPI. GENITOURINARY: See HPI. MUSCULOSKELETAL: See HPI. All systems reviewed & are unremarkable except as noted in HPI and below PMFSH Past Medical History Medical History Patient denies significant medical history Surgical History Surgical History H/O section 06/05/14 primary c/s--lack of progress 09/08/20 rpt c/s Family History Family History Grandparent Heart disease maternal grandmother Hypertension maternal grandmothr Social History Social History Smoking status: Never smoker Second hand tobacco smoke exposure: No Alcohol intake: current Alcohol use details: 5 per month Substance use: never Substance use type: does not use Lack of Transportation: No Lack of Food: Never True Current Housing: I Have Housing Concerned About Future Housing: No Difficulty Paying Gas/Electric Bills: No Difficulty Paying for Meds: No Currently Unemployed: No Education: High School Diploma/GED Difficulty w/ Childcare or Family Care: No Living arrangements: other Additional living arrangements comments: Occupation/Education: other 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 HEAD: Normocephalic, atraumatic. RESPIRATORY: Airway patent, respirations tachypneic but nonlabored. Clear to auscultation bilaterally, no rales, rhonchi, wheezing. No focal lung sounds. CARDIOVASCULAR: Tachycardic with regular rhythm without murmurs, rubs, or gallops. ABDOMINAL: Soft, diffuse R sided abdominal tenderness, TTP in epigastric region, nondistended. Normoactive BS. +CVA tenderness on R. MUSCULOSKELETAL: Moves all extremities. No gross deformities. SKIN: Warm, dry, slightly diaphoretic. NEURO: A&O X3. Speech clear. Cranial nerves II-XII grossly intact. No ataxic movements. PSYCHIATRIC: Appropriate mood and affect. Normal interaction. Course Vital Signs Vital signs: Vital Signs Temperature 98.2 F 03/14/23 13:17 Pulse Rate 118 H 03/14/23 13:17 Respiratory Rate 20 03/14/23 13:17 Blood Pressure 129/77 03/14/23 13:17 Pulse Oximetry 98 03/14/23 13:17 Oxygen Delivery Patsy
[2023-03-14 18:27] LABS: Basophils Absolute Auto 0.1 K/mm3 (0.0-0.1); Basophils Percent Auto 0.7 % (0.2-1.2); Eosinophils Percent Auto 0.1 % (0-4.4); Hematocrit 33.3 % (37.0-47.0); Hemoglobin 10.5 g/dL (12.0-15.0); Immature Granulocyte Absolute 0.04 K/mm3 (0.00-0.031); Immature Granulocyte Percent A 0.3 % (0-0.5); Lymphocytes Absolute Auto 1.09 K/mm3 (0.9-3.2); Lymphocytes Percent Auto 9.3 % (18.3-44.2); Mean Corpuscular HGB Conc 31.5 g/dl (32-36); Mean Corpuscular Hemoglobin 27.5 pg (26-34); Mean Corpuscular Volume 87.2 fl (80-100); Mean Platelet Volume 9.5 fl (7.4-10.4); Monocytes Absolute Auto 0.8 K/mm3 (0.1-0.6); Monocytes Percent Auto 6.6 % (2.6-8.5); Neutrophils Absolute Auto 9.7 K/mm3 (1.3-6.7); Platelet Count Result 236 k/mm3 (150-375); Red Blood Count 3.82 M/mm3 (4.2-5.4); Red Cell Distribution Width 13.2 % (11.5-14.5); White Blood Count 11.7 K/mm3 (4.5-10.0)
--- NOTE | 2023-03-14 18:27 | ECG_ITS ---
Measurements Intervals [place] Rate: 112 P: 48 OK: 132 QRS: 37 QRSD: 86 T: -26 QT: 327 QTc: 448 Interpretive Statements SINUS TACHYCARDIA EARLY PRECORDIAL R/S TRANSITION ST-T WAVE ABNORMALITY IN ANT/INF LEADS- CONSIDER ISCHEMIA ABNORMAL ECG NO PREVIOUS ECG AVAILABLE FOR COMPARISON Electronically Signed On 03-15-2023 6:34:42 MODEL ENGINE MECHANIC by Bonilla Mccrary D.O.
[2023-03-14] MEDS: SODIUM CHLORIDE 0.9% IV 1,000 ML 999 ML IV CONT ×2 (18:29→18:35)
[2023-03-14] MEDS: ONDANSETRON INJ 4 MG/2 ML VIAL IV PUSH (18:30)
[2023-03-14] MEDS: MORPHINE SULFATE (*CRX) 4 MG/ML INJ IV PUSH (18:32)
[2023-03-14] MEDS: ACETAMINOPHEN 500 MG TABLET 1000 MG PO (18:35)
[2023-03-14 18:38] LABS: Alanine Aminotransferase 22 U/L (6-35); Albumin Level 3.5 g/dL (3.5-5.1); Alkaline Phosphatase 145 U/L (38-126); Anion Gap 7 mmol/L (8-16); Aspartate Amino Transferase 27 U/L (14-36); Bilirubin,Total 0.7 mg/dL (0.2-1.3); Blood Urea Nitrogen 8 mg/dL (7-17); Calcium 8.5 mg/dL (8.4-10.2); Carbon Dioxide 28 mmol/L (22-30); Chloride 104 mmol/L (98-107); Estimated CRCL calculation 97 ml/min; Estimated Glomerular Filt Rate > 60; Glucose 92 mg/dL (65-110); Potassium 3.2 mmol/L (3.4-5.0); Sodium 139 mmol/L (137-145)
[2023-03-14 18:39] LABS: Lactic Acid Reflex 0.9 mmol/L (0.7-2.0)
[2023-03-14 18:44] LABS: Appearance Urine Clear (Clear); Bacteria Urine None Seen /hpf; Bilirubin Urine Negative (Negative); Blood Urine 1+ (Negative); Color Urine Yellow (Yellow); Glucose Urine UA Negative (Negative); Ketones Urine Negative (Negative); Leukocyte Esterase Ur Negative LEU/UL (Negative); Nitrate Urine Negative (Negative); Non Pathogenic Casts 0-2; Protein Urine Trace mg/dL (Negative); RBC Urine 0-2 /hpf (0-2); Specific Grav Ur 1.007 (1.001-1.035); Squamous Epithelial Cell Urine Occasional /hpf (Few); WBC Urine 0-5 /hpf
[2023-03-14 18:47] LABS: Add Urine Microscopic? YES
[2023-03-14 18:51] LABS: Burr Cells 1+ (NORMAL); Ovalocytes 1+ (NORMAL); Platelet Estimate Adequate (Adequate); Schistocytes None Seen (NORMAL)
[2023-03-14 19:07] LABS: Influenza A QL RT-PCR Negative (Negative); Influenza B QL RT-PCR Negative (Negative); RSV RNA, RT-PCR Negative (Negative); SARS-CoV-2 RNA PCR Negative (Negative)
--- NOTE | 2023-03-14 19:20 | PC.NURSE ---
Assumed care of pt from GEOR[place]IA Macario at this time.
--- NOTE | 2023-03-14 19:22 | PC.NURSE ---
Report given to Emiliano HO, all questions answered
[2023-03-14] MEDS: KCL 20 MEQ/SW 100 ML 100 ML 50 MEQ IVPB (20:15)
[2023-03-14 20:23] LABS: Magnesium 2.1 mg/dL (1.6-2.3)
[2023-03-14 20:48] LABS: D Dimer 1.52 ug/mL (<0.48)
[2023-03-14] MEDS: SODIUM CHLORIDE 0.9% IV 250 ML 999 ML IV CONT (21:28)
[2023-03-14] MEDS: LACTATED RINGERS 1,000 ML 125 ML IV CONT (23:10)
--- NOTE | 2023-03-14 23:13 | ADMGEN ---
This patient, Chloé Barrios, was admitted to [facility] Surg Room 316-01. Patient/family oriented to hospital policies and general routines including ID bracelet, bed and alarms, visiting hours, pain management, procedures, bathroom and other care routines, personal items, smoking policy, room service/diet, and visiting hours. Information on how to activate the Rapid Response Team has been discussed. Patient/Family are encouraged to report perceived risks to care and to ask questions if they do not understand what they are told or what they should do.
[2023-03-14] MEDS: ACETAMINOPHEN 325 MG TABLET 650 MG PO (23:20)
[2023-03-15] VITALS (14 sets, daily range): BP systolic 124–142; BP diastolic 85–97; PULSE 82–117; RESP 16–20; TEMP 36.1–37.9; O2SAT 86–100
[2023-03-15] MEDS: MORPHINE SULFATE (*CRX) 4 MG/ML INJ IV PUSH (00:02)
[2023-03-15] MEDS: ONDANSETRON INJ 4 MG/2 ML VIAL IV PUSH (00:02)
[2023-03-15] MEDS: ACETAMINOPHEN 325 MG TABLET 650 MG PO ×2 (05:25→20:46)
[2023-03-15] MEDS: LACTATED RINGERS 1,000 ML 125 ML IV CONT (05:28)
--- NOTE | 2023-03-15 05:37 | PM.IMHP ---
H&P: HPI History of Present Illness Date/Time: 03/15/23 05:37 Chief Complaint: Difficulty breathing, Narrative: 22-year-old female with a past medical history of obesity and prior C-sections who presented to the ER via private vehicle due to sensation of difficulty breathing. The patient had been evaluated in the ER on the and was discharged from the ER on the and was diagnosed with pyelonephritis. She was discharged home on cefdinir and Zofran. She had taken 3 doses of the medications. Despite taking medications she was feeling short of breath and decided come back to the ER. On arrival to the ER temperature was a 100.2. She was noted to be significantly tachycardic with heart rates as high as 130. Her blood pressures were stable. She had associated right flank pain and of abdominal pain. Her urine culture has already grown out E coli. Patient reports a T-max of 102.8? at home. Her pain is continued to worsen despite antibiotics and Tylenol. She has not had any dysuria or hematuria. Review of Systems Review of Systems: 12 systems were reviewed with pertinent positives and negatives per HPI. Except as documented in the HPI, all other systems were reviewed and are negative. [facility] Past Medical History Medical History (Updated 03/15/23 @ 06:10 by Taisha Logan DO) Obesity (BMI 30.0-34.9) Surgical History Surgical History H/O section 06/05/14 primary c/s--lack of progress 09/08/20 rpt c/s Family History Family History (Updated 03/14/23 @ 23:14 by Shima Gerber RN) Grandparent Heart disease maternal grandmother Hypertension maternal grandmothr Sibling Kidney disease Other Kidney disease Social History Social History Smoking status: Never smoker Second hand tobacco smoke exposure: No Alcohol intake: current Drinks per week: 1 Alcohol use details: 5 per month Substance use: never Substance use type: does not use Do You Feel Safe in your Home?: Yes Lack of Transportation: No Lack of Food: Never True Current Housing: I Have Housing Concerned About Future Housing: No Difficulty Paying Gas/Electric Bills: No Difficulty Paying for Meds: No Currently Unemployed: No Education: High School Diploma/GED Difficulty w/ Childcare or Family Care: No Living arrangements: other Additional living arrangements comments: Occupation/Education: other 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 Gender identity (if verbalized by the patient): Female Sexual Orientation (if Verbalized by the Patient): Straight or Heterosexual Spiritual care concerns: No Meds Home Medications and Allergies Home Medications Medication Instructions Recorded Confirmed Type cefdinir 300 mg capsule 300 mg PO Q12H 10 days #20 caps 03/12/23 03/14/23 Rx ondansetron 4 mg disintegrating 4 mg PO Q8H PRN nausea and 03/13/23 03/14/23 Rx tablet vomiting #10 tabs Allergies Allergy/AdvReac Type Severity Reaction Status Date / Time No Known Allergies Allergy Verified 03/14/23 23:17 Vital Signs Vital Signs - 24 hr 03/14/23 13:17 03/14/23 17:18 03/14/23 17:31 Temperature 98.2 F 98.8 F Pulse Rate 118 H 128 H Respiratory Rate 20 16 Blood Pressure 129/77 137/84 Pulse Oximetry 98 99 94 Oxygen Delivery Room Air Room Air 03/14/23 17:33 03/14/23 18:19 03/14/23 18:38 Temperature 100.2 F H 99.6 F Pulse Rate 123 H 114 H 111 H Respiratory Rate 29 H 22 H 20 Blood Pressure 134/84 126/86 122/84 Pulse Oximetry 95 91 94 Oxygen Delivery 03/14/23 20:53 03/14/23 23:10 03/15/23 00:00 Temperature 99.3 F Pulse Rate 96 95 107 H Respiratory Rate 22 H 18 Blood Pressure 116/75 132/87 Pulse Oximetry 92 94 Oxygen Delivery 03/15/23 04:00 Temperature Pulse Rate 99 Respiratory Rate Bloo
[2023-03-15 06:41] LABS: Anion Gap 11 mmol/L (8-16); Blood Urea Nitrogen 7 mg/dL (7-17); Calcium 8.1 mg/dL (8.4-10.2); Carbon Dioxide 22 mmol/L (22-30); Chloride 107 mmol/L (98-107); Estimated CRCL calculation 112 ml/min; Estimated Glomerular Filt Rate > 60; Glucose 90 mg/dL (65-110); Potassium 3.4 mmol/L (3.4-5.0); Sodium 140 mmol/L (137-145)
[2023-03-15 06:57] LABS: Basophils Percent Auto 0.4 % (0.2-1.2); Eosinophils Percent Auto 0.4 % (0-4.4); Hematocrit 31.6 % (37.0-47.0); Hemoglobin 9.9 g/dL (12.0-15.0); Immature Granulocyte Absolute 0.07 K/mm3 (0.00-0.031); Immature Granulocyte Percent A 0.7 % (0-0.5); Lymphocytes Absolute Auto 1.47 K/mm3 (0.9-3.2); Lymphocytes Percent Auto 14.2 % (18.3-44.2); Mean Corpuscular HGB Conc 31.3 g/dl (32-36); Mean Corpuscular Hemoglobin 27.4 pg (26-34); Mean Corpuscular Volume 87.5 fl (80-100); Mean Platelet Volume 10.1 fl (7.4-10.4); Monocytes Absolute Auto 0.7 K/mm3 (0.1-0.6); Monocytes Percent Auto 7.1 % (2.6-8.5); Neutrophils Percent Auto 77.2 % (45.5-73.1); Platelet Count Result 229 k/mm3 (150-375); Red Blood Count 3.61 M/mm3 (4.2-5.4); Red Cell Distribution Width 13.2 % (11.5-14.5); White Blood Count 10.4 K/mm3 (4.5-10.0)
[2023-03-15] MEDS: CYCLOBENZAPRINE HCL 10 MG TABLET PO (09:08)
[2023-03-15] MEDS: FAMOTIDINE 20 MG TABLET PO ×2 (09:08→20:28)
[2023-03-15] MEDS: ENOXAPARIN 40 MG/0.4 ML SYRINGE SUB-Q (09:10)
[2023-03-15] MEDS: IBUPROFEN 600 MG TABLET PO (11:14)
--- NOTE | 2023-03-15 11:20 | PC.NURSE ---
Pt requesting a set of vitals be completed at this time due to feeling bad pt states she feels semi dizzy and sleepy. Vitals completed and charted at this time. Dr Santos in the room at this time speaking with patient and family at bedside.
[2023-03-15] MEDS: HYDROcodone/acetaminophen (*CRX) 5-325 MG TABLET 1 TAB PO ×2 (11:30→17:36)
--- NOTE | 2023-03-15 15:53 | PM.IMPN ---
Progress Note: A&P Assessment and Plan (1) Pyelonephritis of right kidney: Code(s): N12 - Tubulo-interstitial nephritis, not specified as acute or chronic Status: Acute (2) Sepsis due to Escherichia coli with acute respiratory failure: Code(s): A41.51 - Sepsis due to Escherichia coli [E. coli]; R65.20 - Severe sepsis without septic shock; J96.00 - Acute respiratory failure, unspecified whether with hypoxia or hypercapnia Status: Acute (3) Acute hypokalemia: Code(s): E87.6 - Hypokalemia Status: Acute Plan Patient meets sepsis criteria with fever, tachycardia, tachypnea and leukocytosis. This is complicated by the patient's acute hypoxic respiratory failure. Patient has been placed on oxygen. She has been placed on a antibiotic therapy with Rocephin. We are waiting sensitivity and specificity for further delineation of antibiotic choice. The patient is having associated headache. Will continue Tylenol as needed and will add ibuprofen for intractable fever or headache. Will monitor strict I&O's. Blood cultures have been obtained and are pending. Given the use of ibuprofen for pain with relief and given concomitant sepsis will add Pepcid for GI prophylaxis. Pt started on iv fuids and iv rocephin Pt having HUERTA today fluids decreased Bc full report pending UC shows Ecoli possible Dc maik Subjective Date/time seen: 03/15/23 15:53 Interval history: Pt running fevers yesterday found to have R pyleonephritis Admitted with sepsis pyelonephritis Review of Systems Review of Systems: Headaches, no urinary complaints Objective Data Vital Signs Vital Signs: Vital Signs - 24 hr 03/14/23 17:18 03/14/23 17:31 03/14/23 17:33 Temperature 37.1 C 37.9 C H Pulse Rate 128 H 123 H Respiratory Rate 16 29 H Blood Pressure 137/84 134/84 Pulse Oximetry 99 94 95 Oxygen Delivery Room Air Oxygen Flow Rate 03/14/23 18:19 03/14/23 18:38 03/14/23 20:53 Temperature 37.6 C Pulse Rate 114 H 111 H 96 Respiratory Rate 22 H 20 22 H Blood Pressure 126/86 122/84 116/75 Pulse Oximetry 91 94 92 Oxygen Delivery Oxygen Flow Rate 03/14/23 23:10 03/15/23 00:00 03/15/23 04:00 Temperature 37.4 C Pulse Rate 95 107 H 99 Respiratory Rate 18 Blood Pressure 132/87 Pulse Oximetry 94 Oxygen Delivery Oxygen Flow Rate 03/15/23 05:35 03/15/23 05:37 03/15/23 06:00 Temperature 37.6 C H 37.6 C H Pulse Rate 117 H 117 H Respiratory Rate 20 20 Blood Pressure 142/97 H 142/97 H Pulse Oximetry 86 L 91 91 Oxygen Delivery Room Air Nasal Cannula Oxygen Flow Rate 2 03/15/23 09:05 03/15/23 11:19 03/15/23 12:30 Temperature Pulse Rate 97 Respiratory Rate 18 Blood Pressure 131/87 124/87 Pulse Oximetry 99 100 Oxygen Delivery Room Air Oxygen Flow Rate 03/15/23 08:00 03/15/23 12:00 03/15/23 13:55 Temperature 36.1 C L Pulse Rate 87 82 94 Respiratory Rate 16 Blood Pressure 138/85 Pulse Oximetry 99 Oxygen Delivery Oxygen Flow Rate Intake/Output Intake/Output: Intake & Output 03/12/23 03/13/23 03/14/23 03/15/23 23:59 23:59 23:59 23:59 Intake Total 2400 1680 Output Total 1999 Balance 2400 -320 Meds/Results Medications: Active Medications Generic Name Dose Route Start Last Admin Trade Name Freq PRN Reason Stop Dose Admin Acetaminophen 650 mg 03/14/23 21:34 03/15/23 05:25 Acetaminophen 325 Mg Tablet PO 650 mg Q4H PRN Administration Mild Pain (1-3) or Fever Hydrocodone Bitart/Acetaminophen 1 tab 03/15/23 11:23 03/15/23 11:30 Hydrocodone/Acetaminophen (*Crx) 5-325 Mg Tablet PO 1 tab Q6H PRN Administration PAIN 4-6 Enoxaparin Sodium 40 mg 03/15/23 09:00 03/15/23 09:10 Enoxaparin 40 Mg/0.4 Ml Syringe SUB-Q 40 mg DAILY ANDRE Administration Famotidine 20 mg 03/15/23 09:00 03/15/23 09:08 Famotidine 20 Mg Tablet PO 20 mg Q12HR ANDRE Administration Ceft
[2023-03-15] MEDS: LACTATED RINGERS 1,000 ML 70 ML IV CONT (17:37)
[2023-03-16] VITALS (8 sets, daily range): BP systolic 116–125; BP diastolic 71–83; PULSE 73–86; RESP 13–16; TEMP 36.4–37.3; O2SAT 95–99
[2023-03-16] MEDS: HYDROcodone/acetaminophen (*CRX) 5-325 MG TABLET 1 TAB PO ×2 (01:07→13:46)
[2023-03-16] MEDS: IBUPROFEN 600 MG TABLET PO ×3 (01:08→16:23)
[2023-03-16] MEDS: FAMOTIDINE 20 MG TABLET PO ×2 (09:26→20:52)
[2023-03-16] MEDS: ENOXAPARIN 40 MG/0.4 ML SYRINGE SUB-Q (09:26)
[2023-03-16] MEDS: LACTATED RINGERS 1,000 ML 70 ML IV CONT (11:54)
--- NOTE | 2023-03-16 13:19 | PM.IMPN ---
Progress Note: A&P Assessment and Plan (1) Pyelonephritis of right kidney: Code(s): N12 - Tubulo-interstitial nephritis, not specified as acute or chronic Status: Acute (2) Sepsis due to Escherichia coli with acute respiratory failure: Code(s): A41.51 - Sepsis due to Escherichia coli [E. coli]; R65.20 - Severe sepsis without septic shock; J96.00 - Acute respiratory failure, unspecified whether with hypoxia or hypercapnia Status: Acute (3) Acute hypokalemia: Code(s): E87.6 - Hypokalemia Status: Acute Plan Patient meets sepsis criteria with fever, tachycardia, tachypnea and leukocytosis. This is complicated by the patient's acute hypoxic respiratory failure. Patient has been placed on oxygen. She has been placed on a antibiotic therapy with Rocephin. We are waiting sensitivity and specificity for further delineation of antibiotic choice. The patient is having associated headache. Will continue Tylenol as needed and will add ibuprofen for intractable fever or headache. Will monitor strict I&O's. Blood cultures have been obtained and are pending. Given the use of ibuprofen for pain with relief and given concomitant sepsis will add Pepcid for GI prophylaxis. Pt started on iv fuids and iv rocephin Pt having HUERTA today fluids decreased Bc full report pending UC shows Ecoli continue with fluids and iv rocephin tylenol for fever topamax for HUERTA consult neurology if HUERTA does not improve Subjective Date/time seen: 03/16/23 13:19 Interval history: Pt running fevers yesterday found to have R pyelonephritis Admitted with sepsis pyelonephritis Pt still having fevers and headaches not feeling well today Review of Systems Review of Systems: Headaches, fevers no specfic urinary complaints Objective Data Vital Signs Vital Signs: Vital Signs - 24 hr 03/15/23 13:55 03/15/23 20:46 03/15/23 21:13 Temperature 36.1 C L 37.9 C H 37.9 C H Pulse Rate 94 98 Respiratory Rate 16 20 Blood Pressure 138/85 128/92 H Pulse Oximetry 99 100 Oxygen Delivery Oxygen Flow Rate 03/15/23 20:00 03/16/23 02:08 03/16/23 06:00 Temperature 37.3 C 36.8 C Pulse Rate 77 Respiratory Rate 16 Blood Pressure 121/83 Pulse Oximetry 100 99 Oxygen Delivery Nasal Cannula Oxygen Flow Rate 2 03/16/23 09:34 03/16/23 08:00 03/16/23 09:52 Temperature 36.9 C Pulse Rate 86 Respiratory Rate Blood Pressure Pulse Oximetry 98 98 Oxygen Delivery Room Air Room Air Oxygen Flow Rate Intake/Output Intake/Output: Intake & Output 03/13/23 03/14/23 03/15/23 03/16/23 23:59 23:59 23:59 23:59 Intake Total 2400 5170 1250 Output Total 5150 1700 Balance 2400 20 -450 Meds/Results Medications: Active Medications Generic Name Dose Route Start Last Admin Trade Name Freq PRN Reason Stop Dose Admin Acetaminophen 650 mg 03/14/23 21:34 03/15/23 20:46 Acetaminophen 325 Mg Tablet PO 650 mg Q4H PRN Administration Mild Pain (1-3) or Fever Hydrocodone Bitart/Acetaminophen 1 tab 03/15/23 11:23 03/16/23 01:07 Hydrocodone/Acetaminophen (*Crx) 5-325 Mg Tablet PO 1 tab Q6H PRN Administration PAIN 4-6 Enoxaparin Sodium 40 mg 03/15/23 09:00 03/16/23 09:26 Enoxaparin 40 Mg/0.4 Ml Syringe SUB-Q 40 mg DAILY ANDRE Administration Famotidine 20 mg 03/15/23 09:00 03/16/23 09:26 Famotidine 20 Mg Tablet PO 20 mg Q12HR ANDRE Administration Ceftriaxone Sodium 1 gm in 50 mls @ 100 mls/hr 03/15/23 20:00 03/15/23 20:58 Rocephin 1 Gm/Ns 50 Ml IVPB Infused Q24H ANDRE Infusion Lactated Ringer's 1,000 mls @ 70 mls/hr 03/14/23 21:35 03/16/23 11:54 Lr - Lactated Ringers Iv IV CONT 70 mls/hr .[id number] ANDRE Administration Ibuprofen 600 mg 03/15/23 05:38 03/16/23 09:24 Ibuprofen 600 Mg Tablet PO 600 mg Q6H PRN Administration Intractable fever or pain 4-6 Morphine Sulfate 4 mg 03/15/23 08:01 Morphine
[2023-03-16] MEDS: cefTRIAXone 2 GM/NS 100 ML 2 GM/100 ML BAG IVPB (13:45)
[2023-03-16] MEDS: NAPROXEN 500 MG TABLET PO (20:52)
[2023-03-16] MEDS: polyethylene glycoL 3350 17 GM POWD.PACK PO (21:21)
[2023-03-16] MEDS: DOCUSATE SODIUM 100 MG CAPSULE PO (21:21)
[2023-03-17 05:50] VITALS: BP 121/77; PULSE 73; RESP 13; TEMP 36.3; O2SAT 97
[2023-03-17 06:32] LABS: Hematocrit 31.2 % (37.0-47.0); Hemoglobin 10.1 g/dL (12.0-15.0); Mean Corpuscular HGB Conc 32.4 g/dl (32-36); Mean Corpuscular Hemoglobin 27.4 pg (26-34); Mean Corpuscular Volume 84.8 fl (80-100); Mean Platelet Volume 8.8 fl (7.4-10.4); Platelet Count Result 252 k/mm3 (150-375); Red Blood Count 3.68 M/mm3 (4.2-5.4); Red Cell Distribution Width 12.9 % (11.5-14.5); White Blood Count 5.8 K/mm3 (4.5-10.0)
[2023-03-17 06:57] LABS: Anion Gap 6 mmol/L (8-16); Blood Urea Nitrogen 9 mg/dL (7-17); Calcium 8.6 mg/dL (8.4-10.2); Carbon Dioxide 30 mmol/L (22-30); Chloride 102 mmol/L (98-107); Estimated CRCL calculation 127 ml/min; Estimated Glomerular Filt Rate > 60; Glucose 93 mg/dL (65-110); Potassium 3.8 mmol/L (3.4-5.0); Sodium 138 mmol/L (137-145)
[2023-03-17] MEDS: DOCUSATE SODIUM 100 MG CAPSULE PO (08:16)
[2023-03-17] MEDS: NAPROXEN 500 MG TABLET PO (08:16)
[2023-03-17] MEDS: FAMOTIDINE 20 MG TABLET PO (08:16)
[2023-03-17] MEDS: cefTRIAXone 2 GM/NS 100 ML 2 GM/100 ML BAG IVPB (09:03)
--- NOTE | 2023-03-17 10:16 | WPDNEURCNPN ---
Assessment and Plan Assessment and plan (1) Headache: Code(s): R51.9 - Headache, unspecified Status: Acute (2) Pyelonephritis: Code(s): N12 - Tubulo-interstitial nephritis, not specified as acute or chronic Status: Acute Plan Chloé Barrios is a 22 year old female with a history of obesity and prior C sections who was recently evaluated at [place] for pyelonephritis. Course has been complicated by headaches, which have improved since starting Naproxen. Headaches are likely secondary to underlying fevers/infection. CT head was unrevealing. - Continue Naproxen 500mg BID x 2 weeks Consult date: 03/17/23 Reason for consult: Headache HPI: Chloé Barrios is a 22 year old female with a history of obesity and prior C sections who was recently evaluated at [place] for pyelonephritis. She was discharged home on cefdinir, but she continued to be symptomatic so she presented to [place] ED again 2 days later (03/14). She had a temperature of 100.2 in the ER and was tachycardic. She was started on Rocephin and subsequently admitted. During the admission, patient reports that she has been having severe headaches, located in the temples and radiating to the back. She feels that the pain is coming from the base of her skull. She has been given Flexerin, ibuprofen, tylenol, but seems to not have a sigificant reduction in her headache. She did have a temperature of 100.2 at night on 03/14, but has not had any elevated temps since then. CT head from this admission is normal. WBC is normal today. Urine culture is positive for E. Coli. Recommended discontinuing ibuprofen and scheduling Naproxen 500mg BID during the admission. Patient reports that headache is much better today. They are planning on discharge today with oral antibiotics. Review of Systems Review of Systems: All systems reviewed & are unremarkable except as noted in HPI and below PMFSH Past Medical History Medical History Obesity (BMI 30.0-34.9) Surgical History Surgical History H/O section 06/05/14 primary c/s--lack of progress 09/08/20 rpt c/s Family History Family History Grandparent Heart disease maternal grandmother Hypertension maternal grandmothr Sibling Kidney disease Other Kidney disease Social History Social History Smoking status: Never smoker Second hand tobacco smoke exposure: No Alcohol intake: current Drinks per week: 1 Alcohol use details: 5 per month Substance use: never Substance use type: does not use Do You Feel Safe in your Home?: Yes Lack of Transportation: No Lack of Food: Never True Current Housing: I Have Housing Concerned About Future Housing: No Difficulty Paying Gas/Electric Bills: No Difficulty Paying for Meds: No Currently Unemployed: No Education: High School Diploma/GED Difficulty w/ Childcare or Family Care: No Living arrangements: other Additional living arrangements comments: Occupation/Education: other 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 Gender identity (if verbalized by the patient): Female Sexual Orientation (if Verbalized by the Patient): Straight or Heterosexual Spiritual care concerns: No Meds Home Medications and Allergies Home Medications Medication Instructions Recorded Confirmed Type ondansetron 4 mg disintegrating 4 mg PO Q8H PRN nausea and 03/13/23 03/14/23 Rx tablet vomiting #10 tabs naproxen 500 mg tablet 500 mg PO Q12HR #30 tabs 03/17/23 Rx polyethylene glycol 3350 17 gram 17 g PO QAM PRN Constipation #30 ea 03/17/23 Rx oral powder packet (Miralax) sulfamethoxazole 800 1 tablet PO Q12H #14 tabs 03/17/23 Rx mg-trimethoprim 160 mg tablet (Bactrim DS) All
[2023-03-17] MEDS: ACETAMINOPHEN 325 MG TABLET 650 MG PO (12:31)
--- NOTE | 2023-03-17 13:37 | PM.DS ---
DS: Admitting Diagnosis Discharge Date 03/17/2023 Admitting Diagnosis Back pain DS: Discharge Diagnosis Discharge Diagnosis (1) Pyelonephritis of right kidney: Code(s): N12 - Tubulo-interstitial nephritis, not specified as acute or chronic Status: Acute (2) Sepsis due to Escherichia coli with acute respiratory failure: Code(s): A41.51 - Sepsis due to Escherichia coli [E. coli]; R65.20 - Severe sepsis without septic shock; J96.00 - Acute respiratory failure, unspecified whether with hypoxia or hypercapnia Status: Acute (3) Acute hypokalemia: Code(s): E87.6 - Hypokalemia Status: Acute DS: Summary Hospital Course Hospital Course: Patient presented back with worsening back pain. She was also feeling short of breath. She met criteria for sepsis with fever, tachycardia, tachypnea and leukocytosis.? This is complicated by the patient's acute hypoxic respiratory failure.? Patient has been placed on oxygen.? She has been placed on a antibiotic therapy with Rocephin.? Recently diagnosed UTI urine culture grew E coli. Blood cultures were obtained which remained negative. Patient also had headaches for which CT head was done which came back negative. Neurology was also consulted. Anti-inflammatory medication were advised. Headache improved. Will switch to Bactrim for 7 more days for her underlying pyelonephritis. Time Spent with Patient Time attestation: Total time spent providing and/or coordinating discharge services: 35 mins Exam Narrative: GENERAL:? well appearing, obese in no acute distress. HEAD: Normocephalic, atraumatic. RESPIRATORY: Airway patent, Clear to auscultation bilaterally, no rales, rhonchi, wheezing.? No focal lung sounds. CARDIOVASCULAR:? Regular rate regular rhythm without murmurs, rubs, or gallops. ABDOMINAL: Soft, no tenderness, nondistended. Normoactive BS. MUSCULOSKELETAL: Moves all extremities. No gross deformities. SKIN: Warm, dry NEURO: A&O X3. Speech clear. Cranial nerves II-XII grossly intact. No ataxic movements. PSYCHIATRIC: Appropriate mood and affect. Normal interaction. DS: Data Data Completed and Pending Labs on day of discharge: Labs from last 24 hours 03/17/23 06:21 WBC 5.8 RBC 3.68 L Hgb 10.1 L Hct 31.2 L MCV 84.8 MCH 27.4 MCHC 32.4 RDW 12.9 Plt Count 252 MPV 8.8 Sodium 138 Potassium 3.8 Chloride 102 Carbon Dioxide 30 Anion Gap 6 L BUN 9 Creatinine 0.70 Estim Creat Clear Calc 127 Estimated GFR > 60 Glucose 93 Calcium 8.6 Preliminary micro results at discharge 03/14/23 19:13 Blood Culture - Preliminary Blood 03/14/23 20:14 Blood Culture - Preliminary Blood Imaging Radiologist's impression: ITS Impressions Chest X-Ray 03/14/23 18:04 IMPRESSION: 1. No acute cardiopulmonary disease. Abdomen/Pelvis CT 03/14/23 19:06 IMPRESSION: 1. Right-sided pyelonephritis with mild right hydronephrosis and hydroureter, stable from 03/12/2023. Chest CTA 03/14/23 21:27 IMPRESSION: 1. No pulmonary embolus. Head CT 03/16/23 18:06 IMPRESSION: 1. Normal brain. Discharge Plan Discharge Attending physician on discharge: Gaudencio Chan Consulting providers: Allie Jenkins; Nancy Holcomb Discharging Clinician: Gaudencio Chan Anticipated Discharge Date/Time: 03/17/23 13:31 Patient Disposition: Home, Self-Care Activity: as tolerated Diet: regular Patient Instructions: Antibiotic Form, Pain Management (DC), Kidney Infection (DC) Stand Alone Forms: General Discharge Information Follow-up/Referrals: Robles,Heber Torres MD [Primary Care Provider] - 1 Week Discharge Medications: New naproxen 500 mg Tablet 500 mg PO Q12HR Qty: 30 0RF polyethylene glycol 3350 [Miralax] 17 gram Powder In Packet 17 g PO QAM PRN (Reason: Constipation) Qty: 30 0RF sulfamethoxazole-trimethoprim [Bactrim DS] 800-160 mg tablet 1 tablet PO Q12H Qt
== END 2023-03-17 13:50 | disposition home or self-care (01) | DRG 720 ==
LOC: ANHED 20:05 → ANH3MEDSUR 22:05
PROVIDERS: Family Medicine; Admitting Provider Internal Medicine; Emergency Provider Physician Assistant; PCP Internal Medicine Gastroenterology; Visit Provider Internal Medicine
DX: A41.9 Sepsis, unspecified organism (principal); R65.20 Severe sepsis without septic shock; N12 Tubulo-interstitial nephritis, not specified as acute or chronic; B96.20 Unspecified Escherichia coli [E. coli] as the cause of diseases classified elsewhere; E66.9 Obesity, unspecified; E87.6 Hypokalemia; J96.01 Acute respiratory failure with hypoxia; K59.09 Other constipation; Z20.822 Contact with and (suspected) exposure to COVID-19; Z68.33 Body mass index [BMI] 33.0-33.9, adult
CPT/HCPCS: 36415; 70450; 71046; 71275; 74176; 80048; 80053; 81001; 81025; 83605; 83735; 85025; 85027; 85380; 87040; 87637; 93005; 96361; 96365; 96366; 96367; 96372; 96375; 99285; A9270; G0378; G0379; J0696; J1650; J2270; J2405; J3480; J7030; J7040; J7050; J7120; Q9967

== ENCOUNTER 2024-02-06 09:05 | Emergency (ER) | payer SELFPAY ==
[2024-02-06 09:14] VITALS: BP 113/71; PULSE 91; RESP 16; TEMP 36.5; O2SAT 99
--- NOTE | 2024-02-06 09:16 | ED_ITS ---
HPI - URI/Sore Throat General Chief Complaint: Upper Respiratory Infection Stated Complaint: Sinus/Ears Irritation Time Seen by Provider: 02/06/24 09:10 Source: patient Mode of arrival: ambulatory Limitations: no limitations History of Present Illness HPI Narrative: Patient is a 23-year-old female who presents with 10 days of congestion, sinus pressure, ear fullness and pain, and fever. Patient reports sore throat has resolved. Has been taking [id number] medication with little relief. Denies any nausea, vomiting, diarrhea. Reports 3 days ago symptoms were improving and then worsen significantly the next day. Related Data Allergies Allergy/AdvReac Type Severity Reaction Status Date / Time No Known Allergies Allergy Verified 02/06/24 09:47 Review of Systems Review of Systems: All systems reviewed & are unremarkable except as noted in HPI and below Constitutional: Constitutional: Denies body ache(s), Denies chills, Denies fatigue, Reports fever(s), Denies headache(s), Denies malaise and Denies weakn ess Eyes: Eyes: Denies blurry vision, Denies itchy eyes and Denies loss of vision ENT: Reports otalgia, Denies headache(s), Reports nasal congestion, Denies sinus pain, Reports sinus pressure and Denies sore throat Cardiovascular: Cardiovascular: Denies chest pain, Denies irregular heart rhythm and Denies dyspnea Respiratory: Respiratory: Denies cough and Denies dyspnea Gastrointestinal: Gastrointestinal: Denies abdominal pain, Denies diarrhea, Denies nausea and Denies vomiting Musculoskeletal: Musculoskeletal: Denies back pain, Denies myalgias and Denies arthralgias Integumentary/Breasts: Skin/Breast: Denies pruritus and Denies rash Neurologic: Denies headache(s), Denies loss of vision and Denies weakness Psychiatric: Psychiatric: Reports no additional psychiatric complaints Endocrine: Endocrine: Denies fatigue Allergic/Immunologic: Allergic/Immunologic: Denies itchy eyes PMFSH Past Medical History Medical History Obesity (BMI 30.0-34.9) Surgical History Surgical History H/O section 06/05/14 primary c/s--lack of progress 09/08/20 rpt c/s Family History Family History Grandparent Heart disease maternal grandmother Hypertension maternal grandmothr Sibling Kidney disease Other Kidney disease Social History Social History Smoking status: Never smoker Second hand tobacco smoke exposure: No Alcohol intake: current Drinks per week: 1 Alcohol use details: 5 per month Substance use: never Substance use type: does not use Do You Feel Safe in your Home?: Yes Lack of Transportation: No Lack of Food: Never True Current Housing: I Have Housing Concerned About Future Housing: No Difficulty Paying Gas/Electric Bills: No Difficulty Paying for Meds: No Currently Unemployed: No Education: High School Diploma/GED Difficulty w/ Childcare or Family Care: No Living arrangements: other Additional living arrangements comments: Occupation/Education: other 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 There is no relevant family history pertinent to the presenting complaint. Exam Const: General: cooperative, healthy appearing, comfortable, no acute distress and well nourished Nutritional Appearance: well nourished [place] ation/consciousness: patient oriented x3 Limitations: no limitations HENMT: Head: normal to inspection, normocephalic and atraumatic Ears: hearing grossly normal bilaterally, external ears normal, TM's normal bilaterally, EAC's normal and no periauricular adenopathy Face/Nose/Sinus: Normal external nose present, Abnormal mucous membranes and turbinates present erythematous bilateral and diffuse, normal facial exam, face symmetric and Facial tenderness on exam of face and sinuses Face and sinus: normal facial exam and face symmetric Mouth: Yes Normal oral and palatal mucosa present, Yes lip normal, Yes tongue normal, Yes Normal salivary glands and ducts present, Yes oropharynx normal and Yes moist mucous membranes Teeth and gingiva: dentition normal Throat: posterior oropharynx normal, tonsils normal and uvula midline Eyes: General: appearance normal, both eyes and all related structures Alignment and Position: alignment normal and position normal Periorbital: periorbital findings normal Eyelids: eyelids normal Pupils: Equal, round and reactive pupils present Neck: Neck: normal visual inspection, full ROM, no lymphadenopathy and supple Chest: Chest palpation & inspection: normal inspection of the chest and normal palpation of entire chest wall Resp: Effort & Inspection: normal respiratory effort and able to speak in complete sentences Auscultation: clear to auscultation bilaterally, no crackles, no rales, no rhonchi and no wheezes Cardio: Rate: regular rate Rhythm: regular rhythm Heart sounds: S1 normal heart sound present and S2 normal heart sound present GI: Inspection: normal to inspection Skin: General skin exam: normal color and no rashes or lesions noted Neuro: General: patient oriented x3 and moves all extremities Cranial nerves: Yes Equal, round and reactive pupils present Speech: normal speech Gait exam (Neuro): Normal gait present Extrem: General: normal to inspection, full ROM and no edema Psych: Appearance: grossly normal and well kempt Mental Status: mental status grossly normal Speech and movement: Normal speech and movement present Affect: normal affect Attitude: cooperative Thought process: Normal thought process present Course Course Emergency Course: Discharge instructions reviewed with patient, as well as provided in writing per nursing staff. The instructions also include specific and strict return/GO TO THE ER as well as f/u information. All questions have been answered, and the patient deny any further questions with discharge and discharge plan. Portions of this record may have been created with voice recognition software Level of Care: Express Care Visit Vital Signs Vital signs: Vital Signs Temperature 36.5 C 02/06/24 09:14 Pulse Rate 91 02/06/24 09:14 Respiratory Rate 16 02/06/24 09:14 Blood Pressure 113/71 02/06/24 09:14 Pulse Oximetry 99 02/06/24 09:14 Oxygen Delivery Room Air 02/06/24 09:14 Temperature 36.5 C 02/06/24 09:14 Pulse Rate 91 02/06/24 09:14 Respiratory Rate 16 02/06/24 09:14 Blood Pressure 113/71 02/06/24 09:14 Pulse Oximetry 99 02/06/24 09:14 Oxygen Delivery Room Air 02/06/24 09:14 Reviewed MDM - URI/Sore Throat MDM Narrative Medical decision making narrative: Pt well hydrated appearing, in no respiratory distress, hemodynamically stable. Recommend supportive care. The patient is stable at time of discharge the clinical impression was discussed and the patient was given the opportunity to ask questions, which were addressed as completely as possible given the information available at present. Anticipatory guidance and return to care precautions were discussed and the importance of primary care follow-up was stressed and encouraged. The patient voiced understanding of the plan, indications to return, and the need for follow-up. Differential diagnosis considered: [place] virus, strep pharyngitis, allergic rhinitis, upper respiratory tract infection, sinusitis, rhinosinusitis, nasopharyngitis. viral pharyngitis, otitis media, otitis externa, otitis effusion, foreign body, cerumen impaction, viral syndrome, and influenza.? Exam findings show no acute concerns or changes; patient is non-toxic appearing and is in no distress.? Patient is appropriate for outpatient treatment and follow- up.? Medical Records Attestation: I reviewed the patient's medical records. Discharge Plan Discharge Clinical Impression: Sinusitis Qualifiers: Sinusitis location: pansinusitis Chronicity: acute Recurrence: non-recurrent Qualified Code(s): J01.40 - Acute pansinusitis, unspecified Patient Disposition: Home, Self-Care Condition: Stable Instructions: Sinusitis (ED) Additional Instructions: Take antibiotic as prescribed. Other symptomatic treatments include: -Alternate Tylenol and Motrin per package directions for fever or pain. -Antihistamine medication such as Benadryl at night and Zyrtec/Claritin/Ally during the day can help improve symptoms. -Use Flonase twice a day for 5 days then daily to help reduce the inflammation and dry up your sinuses. -You can also use Sudafed or Mucinex. Be sure to drink plenty of water with these medications at least 8 ounces with every dose and it is important to drink 8 to 10 glasses of water per day. Water is a natural decongestant -Eat and drink things that are easy to swallow, like tea or soup, or popsicles. -Oral rinses such as: Salt water gargles and/or may use topical anesthetic (eg. Chloraseptic spray) or lozenges to relieve dryness or throat pain). -Frequent hand washing or hand community support associate is one of the best ways to prevent spread of infection. -Using a vaporizer or humidifier at night will also help thin secretions and help with coughing up phlegm. -Follow up with primary care provider in 3-5 days if condition is not improving - For new or worsening symptoms go directly to the nearest ER Patient Language: Georgian Prescriptions: New fluticasone propionate [Flonase Allergy Relief] 50 mcg/actuation spray,suspension 1 spray intranasal DAILY Qty: 16 0RF Rx Instructions: administer into each nostril amoxicillin-pot clavulanate 875-125 mg tablet 1 tablet PO Q12H 10 Days Qty: 20 0RF loratadine 10 mg tablet 10 mg PO DAILY Qty: 30 0RF No Action ondansetron 4 mg tablet,disintegrating 4 mg PO Q8H PRN (Reason: nausea and vomiting) Qty: 10 0RF polyethylene glycol 3350 [Miralax] 17 gram Powder In Packet 17 g PO QAM PRN (Reason: Constipation) Qty: 30 0RF naproxen 500 mg Tablet 500 mg PO Q12HR Qty: 30 0RF Follow-up/Referrals: Robles,Heber Torres MD [Primary Care Provider] - 3 Days Time of Disposition: 09:56
== END 2024-02-06 10:00 | disposition home or self-care (01) ==
PROVIDERS: Emergency Provider Nurse Practitioner Family; PCP Internal Medicine Gastroenterology
DX: J01.40 Acute pansinusitis, unspecified (principal)
CPT/HCPCS: 99213; G0463